=== PATIENT | female | born 1945 | race Caucasian/White ===

== ENCOUNTER 2021-06-25 15:23 | Inpatient (IN) | payer BC, MEDICARE ==
[2021-06-25] MEDS ORDERED: IPRATROPIUM 0.5 MG/2.5 ML NEBU INHALATION STA (16:21)
[2021-06-25] MEDS ORDERED: cefTRIAXone IN SWFI 1,000 MG/10 ML SYRINGE IVP STA (16:21)
[2021-06-25] MEDS ORDERED: methylPREDNISolone SOD SUCCI 125 MG/2 ML VIAL IV STA (16:21)
[2021-06-25] MEDS ORDERED: ALBUTEROL NEBULIZED 2.5 MG/3 ML INHALATION STA (16:21)
--- NOTE | 2021-06-25 16:46 | ED ---
General Adult HPI - General Chief complaint: Shortness of Breath Stated complaint: SOB,PCP sent pt in Time Seen by Provider: 06/25/21 16:10 Source: patient, RN notes reviewed, old records reviewed Mode of arrival: wheelchair Limitations: no limitations - History of Present Illness Initial comments: This is a 75-year-old female who presents emergency Department complaining that she's been coughing more short of breath over the last few days. Patient states a couple people in her household has had a cold recently. Patient states she is a smoker and has smoked for many years. Patient states the shortness of breath is getting progressively worse. Patient states she has just finished takes a really deep breath but that's the only time. Patient denies any palpitations per patient denies any fever chills. Patient states she is coughing quite a bit more and coughing up some sputum. Patient denies any abdominal pain patient denies nausea vomiting diarrhea. Patient denies headache patient denies numbness weakness. - Related Data Home Medications Medication Instructions Recorded Confirmed Aspirin [[place] Aspirin EC] 81 mg PO DAILY 06/25/21 06/25/21 Atenolol [Tenormin] 50 mg PO DAILY 06/25/21 06/25/21 Atorvastatin [Lipitor] 80 mg PO HS 06/25/21 06/25/21 Cholecalciferol [Vitamin D3 (25 25 mcg PO DAILY 06/25/21 06/25/21 Mcg = 1000 Iu)] Cyanocobalamin [Vitamin B-12] 500 mcg PO DAILY 06/25/21 06/25/21 Fluticasone Nasal [place] [Flonase 2 spray EA NOSTRIL DAILY PRN 06/25/21 06/25/21 Nasal [place]] Meclizine HCl 25 mg PO TID PRN 06/25/21 06/25/21 Omeprazole Magnesium [PriLOSEC OTC] 20 mg PO Q48H 06/25/21 06/25/21 hydroCHLOROthiazide [Hydrodiuril] 25 mg PO DAILY 06/25/21 06/25/21 Allergies Allergy/AdvReac Type Severity Reaction Status Date / Time No Known Allergies Allergy Verified 06/25/21 18:29 Review of Systems ROS Statement: Those systems with pertinent positive or pertinent negative responses have been documented in the HPI. ROS Other: All systems not noted in ROS Statement are negative. Past Medical History Past Medical History: Hyperlipidemia, Hypertension History of Any Multi-Drug Resistant Organisms: None Reported Past Surgical History: Section, Cholecystectomy Past Psychological History: No Psychological Hx Reported Smoking Status: Former smoker Past Alcohol Use History: None Reported Past Drug Use History: None Reported General Exam - General Exam Comments Initial Comments: GENERAL: Patient is well-developed and well-nourished. Patient is nontoxic and well- hydrated and is in mild distress. ENT: Neck is soft and supple. No significant lymphadenopathy is noted. Oropharynx i s clear. Moist mucous membranes. Neck has full range of motion without eliciting any pain. EYES: The sclera were anicteric and conjunctiva were pink and moist. Extraocular movements were intact and pupils were equal round and reactive to light. Eyelids were unremarkable. PULMONARY: Patient is wheezing diffusely CARDIOVASCULAR: There is a regular rate and rhythm without any murmurs gallops or rubs. Femoral pulses are equal bilaterally ABDOMEN: Soft and nontender with normal bowel sounds. SKIN: Skin is clear with no lesions or rashes and otherwise unremarkable. NEUROLOGIC: Patient is alert and oriented x3. Cranial nerves II through XII are grossly intact. Motor and sensory are also intact. Normal speech, volume and content. Symmetrical smile. MUSCULOSKELETAL: Normal extremities with adequate strength and full range of motion. LYMPHATICS: No significant lymphadenopathy is noted PSYCHIATRIC: Normal psychiatric evaluation. Limitations: no limitations Course Vital Signs 06/25/21 06/25/21 06/25/21 15:28 17:01 17:09 Temperature 98 F Pulse Rate 58 L 56 L 54 L Respiratory 22 20 Rate Blood Pressure 121/68 O2 Sat by Pulse 90 L Oximetry 06/25/21 17:24 Temperature Pulse Rate 62 Respiratory Rate Blood Pressure O2 Sat by Pulse Oximetry Medical Decision Making - Medical Decision Making EKG shows sinus bradycardia 52 bpm IN interval is 214 QRS is 85 Q-T intervals 47 QTC is 467. Patient's EKG shows no ST segment elevation or depression. Chest x-ray shows no acute abnormality. Patient received multiple breathing treatments and steroids in the emergency department. I went back in after they were done. The patient she continued to wheeze and was tachypneic. I spoke with Dr. Diego he agreed with the patient admitted the patient I continue to breathing treatments steroids and antibiotics on the floor. - Lab Data Result diagrams: 06/25/21 17:10 06/25/21 17:10 Lab Results 06/25/21 06/25/21 06/25/21 Range/Units 17:10 17:10 17:10 WBC 10.8 H (3.8-10.6) k/uL RBC 5.03 (3.80-5.40) m/uL Hgb 15.5 (11.4-16.0) gm/dL Hct 45.5 (34.0-46.0) % MCV 90.4 (80.0-100.0) fL MCH 30.8 (25.0-35.0) pg MCHC 34.1 (31.0-37.0) g/dL RDW 13.1 (11.5-15.5) % Plt Count 173 (150-450) k/uL MPV 9.9 Neutrophils % 76 % Lymphocytes % 16 % Monocytes % 6 % Eosinophils % 0 % Basophils % 0 % Neutrophils # 8.2 H (1.3-7.7) k/uL Lymphocytes # 1.7 (1.0-4.8) k/uL Monocytes # 0.6 (0-1.0) k/uL Eosinophils # 0.0 (0-0.7) k/uL Basophils # 0.0 (0-0.2) k/uL PT 11.0 (9.0-12.0) sec INR 1.0 (<1.2) APTT 24.3 (22.0-30.0) sec Sodium 132 L (137-145) mmol/L Potassium 3.2 L (3.5-5.1) mmol/L Chloride 94 L (98-107) mmol/L Carbon Dioxide 26 (22-30) mmol/L Anion Gap 12 mmol/L BUN 23 H (7-17) mg/dL Creatinine 0.82 (0.52-1.04) mg/dL Est GFR (CKD-EPI)AfAm 81 (>60 ml/min/1.73 sqM) Est GFR (CKD-EPI)NonAf 70 (>60 ml/min/1.73 sqM) Glucose 108 H (74-99) mg/dL Plasma Lactic Acid Arsh (0.7-2.0) mmol/L Calcium 8.8 (8.4-10.2) mg/dL Total Bilirubin 1.5 H (0.2-1.3) mg/dL AST 59 H (14-36) U/L ALT 35 H (4-34) U/L Alkaline Phosphatase 79 (38-126) U/L Troponin I (0.000-0.034) ng/mL Total Protein 6.9 (6.3-8.2) g/dL Albumin 3.9 (3.5-5.0) g/dL Influenza Type A (PCR) (Not Detectd) Influenza Type B (PCR) (Not Detectd) RSV (PCR) (Not Detectd) SARS-CoV-2 (PCR) (Not Detectd) 06/25/21 06/25/21 06/25/21 Range/Units 17:10 17:10 17:24 WBC (3.8-10.6) k/uL RBC (3.80-5.40) m/uL Hgb (11.4-16.0) gm/dL Hct (34.0-46.0) % MCV (80.0-100.0) fL MCH (25.0-35.0) pg MCHC (31.0-37.0) g/dL RDW (11.5-15.5) % Plt Count (150-450) k/uL MPV Neutrophils % % Lymphocytes % % Monocytes % % Eosinophils % % Basophils % % Neutrophils # (1.3-7.7) k/uL Lymphocytes # (1.0-4.8) k/uL Monocytes # (0-1.0) k/uL Eosinophils # (0-0.7) k/uL Basophils # (0-0.2) k/uL PT (9.0-12.0) sec INR (<1.2) APTT (22.0-30.0) sec Sodium (137-145) mmol/L Potassium (3.5-5.1) mmol/L Chloride (98-107) mmol/L Carbon Dioxide (22-30) mmol/L Anion Gap mmol/L BUN (7-17) mg/dL Creatinine (0.52-1.04) mg/dL Est GFR (CKD-EPI)AfAm (>60 ml/min/1.73 sqM) Est GFR (CKD-EPI)NonAf (>60 ml/min/1.73 sqM) Glucose (74-99) mg/dL Plasma Lactic Acid Arsh 2.2 H* (0.7-2.0) mmol/L Calcium (8.4-10.2) mg/dL Total Bilirubin (0.2-1.3) mg/dL AST (14-36) U/L ALT (4-34) U/L Alkaline Phosphatase (38-126) U/L Troponin I 0.029 (0.000-0.034) ng/mL Total Protein (6.3-8.2) g/dL Albumin (3.5-5.0) g/dL Influenza Type A (PCR) Not Detected (Not Detectd) Influenza Type B (PCR) Not Detected (Not Detectd) RSV (PCR) Not Detected (Not Detectd) SARS-CoV-2 (PCR) Not Detected (Not Detectd) Critical Care Time Critical Care Time: Yes Total Critical Care Time: 35 Disposition Clinical Impression: Acute exacerbation of chronic obstructive pulmonary disease Disposition: ADMITTED IP TO THIS HOSP Referrals: Tj Cerda MD [Primary Care Provider] - 1-2 days Time of Disposition: 19:32
[2021-06-25 17:47] LABS: Basophils % (A) 0 %; Eosinophils % (A) 0 %; HCT 45.5 % (34.0-46.0); HGB 15.5 gm/dL (11.4-16.0); Lymphocytes # (A) 1.7 k/uL (1.0-4.8); Lymphocytes % (A) 16 %; MCH 30.8 pg (25.0-35.0); MCHC 34.1 g/dL (31.0-37.0); MCV 90.4 fL (80.0-100.0); Mean Platelet Volume 9.9; Monocytes # (A) 0.6 k/uL (0-1.0); Monocytes % (A) 6 %; Neutrophils # (A) 8.2 k/uL (1.3-7.7); Neutrophils % (A) 76 %; Platelet Count 173 k/uL (150-450); RBC 5.03 m/uL (3.80-5.40); RDW 13.1 % (11.5-15.5); WBC 10.8 k/uL (3.8-10.6)
[2021-06-25 17:53] LABS: Albumin 3.9 g/dL (3.5-5.0); Calcium 8.8 mg/dL (8.4-10.2); Potassium 3.2 mmol/L (3.5-5.1); Total Bilirubin 1.5 mg/dL (0.2-1.3); Total Protein 6.9 g/dL (6.3-8.2)
[2021-06-25 17:54] LABS: Partial Thromboplastin Time 24.3 sec (22.0-30.0)
--- NOTE | 2021-06-25 18:55 | XR ---
EXAMINATION: XR chest 2V DATE AND TIME: 06/25/2021 5:38 PM CLINICAL INDICATION: PHH; difficulty breathing TECHNIQUE: Departmental protocol COMPARISON: None FINDINGS: The lungs are clear. The pleural spaces are negative. The cardiac silhouette is not enlarged. The remainder of the mediastinal silhouette is unremarkable. The skeletal structures and soft tissues are negative for acute findings. IMPRESSION: No acute radiographic process.
[2021-06-25] MEDS ORDERED: IPRATROPIUM-ALBUTEROL 3 ML NEB INHALATION PRN (19:33)
[2021-06-25] MEDS ORDERED: FLUTICASONE 50MCG/SPRAY NASAL 16GM EA NOSTRIL PRN (21:38)
--- NOTE | 2021-06-25 22:15 | P.HPIM ---
History of Present Illness H&P Date: 06/25/21 HISTORY OF PRESENT ILLNESS 75-year-old female one of Dr. Cerda's patient with past medical history of chronic smoking, COPD, hypertension and hyperlipidemia who was diagnosed with mild COPD in the past has not been hospitalized with any complication related COPD or Covid last few years. Patient presented to the emergency department at [facility] on 06/25/2021 with significant shortness of breath cough wheezes with severe tightness and cough predictive dark phlegm. Patient apparently had failed to keep her symptoms under control on outpatient inhaler. Her emergency workup initially with white blood cell was 10,800 mildly hypokalemia with mildly elevated lactic acid at 2.2 with slightly abnormal liver function test with Covid 19 negative, with negative influenza A and B. Patient was giving multiple dose of nebulizer management in the emergency room with failure to bring her pulse ox above 90 percentile initially was in the mid 80 with 2-3 L of O2 a pulse ox rice to be above 90 percentile. Patient was giving Solu-Medrol, Rocephin and started on nebulizer treatment [id number] will be admitted to the hospital for acute respiratory failure. REVIEW OF SYSTEMS Constitutional: No fever, no chills, no night sweats. No weight change. No weakness, fatigue or lethargy. No daytime sleepiness. EENT: No headache. No blurred vision or double vision, no loss of vision. No loss of Hearing, no ringing in the ears, no dizziness. No nasal drainage or congestion. No epistaxis. No sore throat. Lungs: significant shortness of breath, cough wheezes with significant respiratory failure this point. Sputum production and mild tightness with deep inspiration. Cardiovascular: No chest pain, no lower extremity edema. No palpitations. No paroxysmal nocturnal dyspnea. No orthopnea. No lightheadedness or dizziness. No syncopal episodes. Abdominal: No abdominal pain. No nausea, vomiting. No diarrhea. No constipat ion. No bloody or tarry stools.. No loss of appetite. Genitourinary: No dysuria, increased frequency, urgency. No urinary retention. Musculoskeletal: No myalgias. No muscle weakness, no gait dysfunction, no frequent falls. No back pain. No neck pain. Integumentary: No wounds, no lesions. No rash or pruritus. No unusual bruising. No change in hair or nails. Neurologic: No aphasia. No facial droop. No change in mentation. No head injury. No headache. No paralysis. No paresthesia. Psychiatric: No depression. No anxiety. No mood swings. Endocrine: No abnormal blood sugars. No weight change. No excessive sweating or thirst. No cold intolerance. SOCIAL HISTORY she smoked 1 pack a day for over 48 years, no Reed abuse, no marijuana use, patient uses nebulizer sometime in inhaler does not walk with a walker or cane she is a live alone. FAMILY HISTORY her mother dying in her 70s from cancer of unknown type, father in his 70s from MS, patient had 2 sisters one had ALS and one had a stroke. Patient has 3 children are all living and well. PHYSICAL EXAMINATION Gen: This is well-developed sitting up in bed having mild tachypnea in mild respiratory distress. HEENT: Head is atraumatic, normocephalic. Pupils equal, round. Sclerae is anicteric. NECK: Supple. No JVD. No lymphadenopathy. No thyromegaly. LUNGS: decreased expansion with inspiration positive for rhonchi especially in t he bases positive mild inspiratory expiratory wheezes. HEART: Regular rate and rhythm. No murmur. has mild tachycardia. ABDOMEN: Soft. Bowel sounds are present. No masses. No tenderness. EXTREMITIES: No pedal edema. No calf tenderness. NEUROLOGICAL: Patient is awake, alert and oriented x3. Cranial nerves 2 through 12 are grossly intact. ASSESSMENT AND PLAN 1.severe dyspnea and acute respiratory failure: Secondary to COPD exacerbation,and bronchitis. Patient will be admitted to the hospital continue O2, if needed BiPAP use, will consult pulmonary, was start patient on IV steroids along with DuoNeb and Pulmicort. 2 COPD exacerbation: With chronic history of smoking for over 40 years, she'll be seen pulmonary, continue aggressive management and treatment for COPD at this point. 3 acute severe bronchitis: Most likely atypical with patient's current symptoms was started on Rocephin initially and switched to Omnicef continue medication. 4 mildly elevated lactic acid: With no sign of sepsis with hydration lactic acid came down to normal keep watching for any sign of sepsis at this point. 5 abnormal liver function tests: With no sign of hepatitis repeat CMP tomorrow and if needed ultrasound of the liver will be done. 6 hypokalemia: Most likely secondary to medication the patient is on hydrocodone chlorothiazide potassium supplements will be done repeat potassium magnesium level tomorrow. 7 chronic history of smoking: Smoking cessation was addressed patient be started nicotine patch at this point. 8 hypertension: Continue patient on atenolol 50 mg a day along with Hydrea diarrheal. 9 hyperlipidemia: Continue patient on atorvastatin 80 mg daily. 10 severe GERD/GI prophylaxis: Patient has been on omeprazole 20 mg every 48 hours and switch it to every day at this point. 11 DVT prophylaxis: Patient will be on Lovenox 40 mg daily. 11. COVID-19 testing.was negative patient was admitted to the hospital during pandemic time. Patient will be admitted to the hospital for a minimum of 2 night stay. Past Medical History Past Medical History: Hyperlipidemia, Hypertension History of Any Multi-Drug Resistant Organisms: None Reported Past Surgical History: Section, Cholecystectomy Past Psychological History: No Psychological Hx Reported Smoking Status: Former smoker Past Alcohol Use History: None Reported Past Drug Use History: None Reported Medications and Allergies Home Medications Medication Instructions Recorded Confirmed Type Aspirin [[place] Aspirin EC] 81 mg PO DAILY 06/25/21 06/25/21 History Atenolol [Tenormin] 50 mg PO DAILY 06/25/21 06/25/21 History Atorvastatin [Lipitor] 80 mg PO HS 06/25/21 06/25/21 History Cholecalciferol [Vitamin D3 (25 25 mcg PO DAILY 06/25/21 06/25/21 History Mcg = 1000 Iu)] Cyanocobalamin [Vitamin B-12] 500 mcg PO DAILY 06/25/21 06/25/21 History Fluticasone Nasal [place] [Flonase 2 spray EA NOSTRIL DAILY PRN 06/25/21 06/25/21 History Nasal [place]] Meclizine HCl 25 mg PO TID PRN 06/25/21 06/25/21 History Omeprazole Magnesium [PriLOSEC OTC] 20 mg PO Q48H 06/25/21 06/25/21 History hydroCHLOROthiazide [Hydrodiuril] 25 mg PO DAILY 06/25/21 06/25/21 History Allergies Allergy/AdvReac Type Severity Reaction Status Date / Time No Known Allergies Allergy Verified 06/25/21 18:29 Physical Exam Vitals: Vital Signs Temp Pulse Resp BP Pulse Ox 06/25/21 17:24 62 04/07/22 17:09 54 L 20 06/25/21 17:01 56 L 06/25/21 15:28 98 F 58 L 22 121/68 90 L Intake and Output 06/25/21 06/25/21 06/25/21 06:59 14:59 22:59 Other: Weight 65.317 kg Results CBC & Chem 7: 06/25/21 17:10 06/25/21 17:10 Labs: Abnormal Lab Results - Last 24 Hours (Table) 06/25/21 06/25/21 06/25/21 Range/Units 17:10 17:10 17:10 WBC 10.8 H (3.8-10.6) k/uL Neutrophils # 8.2 H (1.3-7.7) k/uL Sodium 132 L (137-145) mmol/L Potassium 3.2 L (3.5-5.1) mmol/L Chloride 94 L (98-107) mmol/L BUN 23 H (7-17) mg/dL Glucose 108 H (74-99) mg/dL Plasma Lactic Acid Arsh 2.2 H* (0.7-2.0) mmol/L Total Bilirubin 1.5 H (0.2-1.3) mg/dL AST 59 H (14-36) U/L ALT 35 H (4-34) U/L
[2021-06-25] MEDS: POTASSIUM CHLORIDE ER 20 MEQ TAB.ER PO SCH (22:53)
[2021-06-26] MEDS: methylPREDNISolone SOD SUCCI 125 MG/2 ML VIAL IV SCH ×5 (00:36→23:22)
[2021-06-26] MEDS: POTASSIUM CHLORIDE ER 20 MEQ TAB.ER PO SCH (00:36)
[2021-06-26 08:04] LABS: Glucose,Whole Blood 195 mg/dL (75-99)
[2021-06-26] MEDS: ENOXAPARIN 40 MG/0.4 ML SYRINGE SQ SCH (10:03)
[2021-06-26] MEDS: hydroCHLOROthiazide 25 MG TAB PO SCH (10:03)
[2021-06-26] MEDS: CEFDINIR 300 MG CAP PO SCH ×2 (10:03→19:43)
[2021-06-26] MEDS: CYANOCOBALAMIN 500 MCG TAB PO SCH (10:03)
[2021-06-26] MEDS: atenoloL 50 MG TAB PO SCH (10:03)
[2021-06-26] MEDS: NICOTINE 14MG/24HR PATCH TRANSDERM SCH (10:03)
[2021-06-26] MEDS: ASPIRIN 81 MG PO SCH (10:03)
[2021-06-26] MEDS: CHOLECALCIFEROL 25 MCG (1000 IU) TABLET PO SCH (10:03)
[2021-06-26 10:31] LABS: HGB 13.5 g/dL (12.0-15.0); MCH 29.7 pg (27.0-32.0); MCHC 33.8 g/dL (32.0-37.0); MCV 87.9 fL (80.0-97.0); Mean Platelet Volume 12.1 fL (9.5-12.2); NRBC Per 100 WBC 0 /100 WBCS (0.0-0.0); Platelet Count 155 X 10*3/uL (140-440); RBC 4.55 X 10*6/uL (4.10-5.20); RDW 12.7 % (11.5-14.5); WBC 6.15 X 10*3/uL (4.50-10.00)
[2021-06-26 10:39] LABS: Albumin 3.6 g/dL (3.8-4.9); Albumin/Globulin Ratio 1.57 (1.60-3.17); Anion Gap 16.1 mmol/L (10.00-18.00); BUN/Creat Ratio 23.88 Ratio (12.00-20.00); Blood Urea Nitrogen 19.1 mg/dL (9.0-27.0); Calcium 8.8 mg/dL (8.7-10.3); Carbon Dioxide 22.9 mmol/L (20.0-27.5); Globulin 2.3 g/dL (1.6-3.3); Non-African American GFR(CKD) 71.6 (60.0-200.0); Potassium 3.7 mmol/L (3.5-5.5); Total Bilirubin 0.7 mg/dL (0.30-1.20); Total Protein 5.9 g/dL (6.2-8.2)
--- NOTE | 2021-06-26 10:57 | P.PN ---
Subjective Progress Note Date: 06/26/21 HISTORY OF PRESENT ILLNESS 75-year-old female one of Dr. Cerda's patient with past medical history of chronic smoking, COPD, hypertension and hyperlipidemia who was diagnosed with mild COPD in the past has not been hospitalized with any complication related COPD or Covid last few years. Patient presented to the emergency department at [facility] on 06/25/2021 with significant shortness of breath cough wheezes with severe tightness and cough predictive dark phlegm. Patient apparently had failed to keep her symptoms under control on outpatient inhaler. Her emergency workup initially with white blood cell was 10,800 mildly hypokalemia with mildly elevated lactic acid at 2.2 with slightly abnormal liver function test with Covid 19 negative, with negative influenza A and B. Patient was giving multiple dose of nebulizer management in the emergency room with failure to bring her pulse ox above 90 percentile initially was in the mid 80 with 2-3 L of O2 a pulse ox rice to be above 90 percentile. Patient was giving Solu-Medrol, Rocephin and started on nebulizer treatment [id number] will be admitted to the hospital for acute respiratory failure. 06/26: Patient states that her breathing is improved today. Lungs continue to be tight with noted cough with worse breath sounds on the right side. We will repeat chest x-ray for tomorrow. Patient has been afebrile, heart rate 65, blood pressure 152/63, pulse ox 96% on 3 L nasal cannula. Discussed smoking cessation again with the patient and she is agreeable to stop now and has nicotine patich in place. She does not have O2/nebulizer at home which she may require at discharge Anticipate probable discharge home by Tuesday. REVIEW OF SYSTEMS Constitutional: No fever, no chills, no night sweats. No weight change. No weakness, fatigue or lethargy. No daytime sleepiness. EENT: No headache. No blurred vision or double vision, no loss of vision. No loss of Hearing, no ringing in the ears, no dizziness. No nasal drainage or congestion. No epistaxis. No sore throat. Lungs: significant shortness of breath, reports cough wheezes with significant respiratory failure this point. Sputum production and mild tightness with deep inspiration. Cardiovascular: No chest pain, no lower extremity edema. No palpitations. No paroxysmal nocturnal dyspnea. No orthopnea. No lightheadedness or dizziness. No syncopal episodes. Abdominal: No abdominal pain. No nausea, vomiting. No diarrhea. No constipation. No bloody or tarry stools.. No loss of appetite. Genitourinary: No dysuria, increased frequency, urgency. No urinary retention. Musculoskeletal: No myalgias. No muscle weakness, no gait dysfunction, no frequent falls. No back pain. No neck pain. Integumentary: No wounds, no lesions. No rash or pruritus. No unusual bruising. No change in hair or nails. Neurologic: No aphasia. No facial droop. No change in mentation. No head injury. No headache. No paralysis. No paresthesia. Psychiatric: No depression. No anxiety. No mood swings. Endocrine: No abnormal blood sugars. No weight change. No excessive sweating or thirst. No cold intolerance. PHYSICAL EXAMINATION Gen: This is well-developed sitting up in bed having mild tachypnea in mild respiratory distress. HEENT: Head is atraumatic, normocephalic. Pupils equal, round. Sclerae is anicteric. NECK: Supple. No JVD. No lymphadenopathy. No thyromegaly. LUNGS: decreased expansion with inspiration positive for rhonchi especially in the bases positive mild inspiratory expiratory wheezes. HEART: Regular rate and rhythm. No murmur. has mild tachycardia. ABDOMEN: Soft. Bowel sounds are present. No masses. No tenderness. EXTREMITIES: No pedal edema. No calf tenderness. NEUROLOGICAL: Patient is awake, alert and oriented x3. Cranial nerves 2 through 12 are grossly intact. ASSESSMENT AND PLAN 1.severe dyspnea and acute respiratory failure: Secondary to COPD exacerbation,and bronchitis. Patient will be admitted to the hospital continue O2, if needed BiPAP use, will consult pulmonary, was start patient on IV Solu- Medrol along with DuoNeb and Pulmicort. 2 COPD exacerbation: With chronic history of smoking for over 40 years, she'll be seen pulmonary, continue aggressive management and treatment for COPD at this point. 3 acute severe bronchitis: Most likely atypical with patient's current symptoms was started on Rocephin initially and switched to Omnicef continue medication. 4 mildly elevated lactic acid: With no sign of sepsis with hydration lactic acid came down to normal keep watching for any sign of sepsis at this point. 5 abnormal liver function tests: With no sign of hepatitis repeat CMP tomorrow and if needed ultrasound of the liver will be done. 6 hypokalemia: Most likely secondary to medication the patient is on hydrocodone chlorothiazide potassium supplements will be done repeat potassium magnesium level tomorrow. 7 chronic history of smoking: Smoking cessation was addressed patient be started nicotine patch at this point. 8 hypertension: Continue patient on atenolol 50 mg a day along with hydrochlorothiazide. 9 hyperlipidemia: Continue patient on atorvastatin 80 mg daily. 10 severe GERD/GI prophylaxis: Patient has been on omeprazole 20 mg every 48 hours and switch it to every day at this point. 11 DVT prophylaxis: Patient will be on Lovenox 40 mg daily. 11. COVID-19 testing.was negative patient was admitted to the hospital during pandemic time. DISCHARGE PLAN Home most likely on Tuesday Impression and plan of care have been directed as dictated by the signing physician. Mary Blum nurse practitioner acting as scribe for signing physician. Objective - Vital Signs Vital signs: Vital Signs Temp 97.9 F 06/26/21 07:30 Pulse 65 06/26/21 07:30 Resp 18 06/26/21 07:30 BP 152/63 06/26/21 07:30 Pulse Ox 96 06/26/21 07:30 Intake & Output 06/25/21 06/26/21 06/26/21 18:59 06:59 18:59 Intake Total 200 Balance 200 Weight 65.317 kg 65.317 kg Intake: Oral 200 Other: # Voids 1 - Labs CBC & Chem 7: 06/26/21 06:15 06/26/21 06:15 Labs: Abnormal Lab Results - Last 24 Hours (Table) 06/25/21 06/25/21 06/25/21 Range/Units 17:10 17:10 17:10 WBC 10.8 H (3.8-10.6) k/uL Neutrophils # 8.2 H (1.3-7.7) k/uL Sodium 132 L (137-145) mmol/L Potassium 3.2 L (3.5-5.1) mmol/L Chloride 94 L (98-107) mmol/L BUN 23 H (7-17) mg/dL Glucose 108 H (74-99) mg/dL POC Glucose (mg/dL) (75-99) mg/dL Plasma Lactic Acid Arsh 2.2 H* (0.7-2.0) mmol/L Total Bilirubin 1.5 H (0.2-1.3) mg/dL AST 59 H (14-36) U/L ALT 35 H (4-34) U/L 06/26/21 Range/Units 08:02 WBC (3.8-10.6) k/uL Neutrophils # (1.3-7.7) k/uL Sodium (137-145) mmol/L Potassium (3.5-5.1) mmol/L Chloride (98-107) mmol/L BUN (7-17) mg/dL Glucose (74-99) mg/dL POC Glucose (mg/dL) 195 H (75-99) mg/dL Plasma Lactic Acid Arsh (0.7-2.0) mmol/L Total Bilirubin (0.2-1.3) mg/dL AST (14-36) U/L ALT (4-34) U/L
[2021-06-26 11:14] LABS: Glucose,Whole Blood 257 mg/dL (75-99)
[2021-06-26] MEDS: INSULIN ASPART (NovoLOG) 100 UNIT/ML VIAL SQ SCH ×3 (12:41→20:51)
--- NOTE | 2021-06-26 14:23 | P.CNPUL ---
History of Present Illness Consult date: 06/26/21 Reason for consult: dyspnea, COPD History of present illness: 75-year-old female patient, known history of COPD, no history of chronic smoking, does not utilize any form of respiratory medications or inhalers of bronchodilators or oxygen at home. The patient is fully vaccinated for COVID 193. The patient came into the hospital for worsening shortness of breath cough chest congestion and wheezing. She initially came into the emergency dep artment on 06/25/2021 with the above-mentioned symptoms and the patient was producing also some sputum. Further investigation revealed that the patient was negative for COVID 19. Influenza screen was also negative. The patient was started on [id number] breathing treatments. She was hypoxic and she was placed on 2 L of O2 by nasal cannula which both upper pulse ox above 90%. She was admitted for an acute COPD exacerbation. Chest x-ray shows COPD and some limited evaluation of the left hemidiaphragm. No other acute abnormality is noted. No altered mentation. No change in mental status. She is currently on Omnicef. She is on bronchodilators to she is a 90 Solu Medrol system milligrams every 6 hours and she's feeling much better. She was also provided nicotine patch. Review of Systems Constitutional: No fever, no chills, no night sweats. No weight change. No weakness, fatigue or lethargy. No daytime sleepiness. No reported fever or chills. No weight loss. No other constitutional symptoms for now. EENT: No headache. No blurred vision or double vision, no loss of vision. No loss of Hearing, no ringing in the ears, no dizziness. No nasal drainage or congestion. No epistaxis. No sore throat. Lungs: significant shortness of breath, cough wheezes with significant respiratory failure this point. Sputum production and mild tightness with deep inspiration. Cardiovascular: No chest pain, no lower extremity edema. No palpitations. No paroxysmal nocturnal dyspnea. No orthopnea. No lightheadedness or dizziness. No syncopal episodes. Abdominal: No abdominal pain. No nausea, vomiting. No diarrhea. No c onstipation. No bloody or tarry stools.. No loss of appetite. Genitourinary: No dysuria, increased frequency, urgency. No urinary retention. Musculoskeletal: No myalgias. No muscle weakness, no gait dysfunction, no frequent falls. No back pain. No neck pain. Integumentary: No wounds, no lesions. No rash or pruritus. No unusual bruising. No change in hair or nails. Neurologic: No aphasia. No facial droop. No change in mentation. No head injury. No headache. No paralysis. No paresthesia. Psychiatric: No depression. No anxiety. No mood swings. Endocrine: No abnormal blood sugars. No weight change. No excessive sweating or thirst. No cold intolerance. Past Medical History Past Medical History: COPD, GERD/Reflux, Hyperlipidemia, Hypertension History of Any Multi-Drug Resistant Organisms: None Reported Past Surgical History: Section, Cholecystectomy Past Psychological History: No Psychological Hx Reported Smoking Status: Former smoker Past Alcohol Use History: None Reported Past Drug Use History: None Reported Medications and Allergies Home Medications Medication Instructions Recorded Confirmed Type Aspirin [Po[place]ett Aspirin EC] 81 mg PO DAILY 06/25/21 06/25/21 History Atenolol [Tenormin] 50 mg PO DAILY 06/25/21 06/25/21 History Atorvastatin [Lipitor] 80 mg PO HS 06/25/21 06/25/21 History Cholecalciferol [Vitamin D3 (25 25 mcg PO DAILY 06/25/21 06/25/21 History Mcg = 1000 Iu)] Cyanocobalamin [Vitamin B-12] 500 mcg PO DAILY 06/25/21 06/25/21 History Fluticasone Nasal Wilber [Flonase 2 spray EA NOSTRIL DAILY PRN 06/25/21 06/25/21 History Nasal Wilber] Meclizine HCl 25 mg PO TID PRN 06/25/21 06/25/21 History Omeprazole Magnesium [PriLOSEC OTC] 20 mg PO Q48H 06/25/21 06/25/21 History hydroCHLOROthiazide [Hydrodiuril] 25 mg PO DAILY 06/25/21 06/25/21 History Allergies Allergy/AdvReac Type Severity Reaction Status Date / Time No Known Allergies Allergy Verified 06/25/21 18:29 Physical Exam Vitals: Vital Signs Temp Pulse Pulse Resp BP BP BP 06/26/21 12:04 98.4 F 64 18 136/67 06/26/21 10:48 06/26/21 08:25 18 06/26/21 07:30 97.9 F 65 18 152/63 06/26/21 05:35 98 F 49 L 20 138/67 06/25/21 21:00 20 06/25/21 20:40 97.4 F L 53 L 20 159/71 06/25/21 17:24 62 06/25/21 17:09 54 L 20 06/25/21 17:01 56 L 06/25/21 15:28 98 F 58 L 22 121/68 Pulse Ox Pulse Ox Pulse Ox Pulse Ox Pulse Ox 06/26/21 12:04 94 L 06/26/21 10:48 96 94 L 90 L 87 L 06/26/21 08:25 06/26/21 07:30 96 06/26/21 05:35 94 L 06/25/21 21:00 06/25/21 20:40 91 L 06/25/21 17:24 06/25/21 17:09 06/25/21 17:01 06/25/21 15:28 90 L Intake and Output 06/25/21 06/26/21 06/26/21 22:59 06:59 14:59 Intake Total 100 100 Balance 100 100 Intake: Oral 100 100 Other: Voiding Method Toilet # Voids 1 Weight 65.317 kg Gen. appearance the patient is calm and comfortable is on 2 L of oxygen by nasal cannula. She is not using excessive muscle breathing. Head exam was generally normal. There was no scleral icterus or corneal arcus. Mucous membranes were moist. Neck was supple and without jugular venous distension, thyromegaly, or carotid bruits. Carotids were easily palpable bilaterally. There was no adenopathy. Lungs sounds are diminished and the patient has diffuse expiratory wheezes throughout the lung his bilaterally Cardiac exam revealed the PMI to be normally situated and sized. The rhythm was regular and no extrasystoles were noted during several minutes of auscultation. The first and second heart sounds were normal and physiologic splitting of the second heart sound was noted. There were no murmurs, rubs, clicks, or gallops. Abdominal exam revealed normal bowel sounds. The abdomen was soft, non-tender, and without masses, organomegaly, or appreciable enlargement of the abdominal aorta. Examination of the extremities revealed easily palpable radial, femoral and pedal pulses. There was no cyanosis, clubbing or edema. Examination of the skin revealed no evidence of significant rashes, suspicious appearing nevi or other concerning lesions. Neurologically, the patient is awake and alert and the patient does not have any focal neurological deficit. Cranial nerves are essentially intact. Results - Laboratory Findings CBC and BMP: 06/26/21 06:15 06/26/21 06:15 PT/INR, D-dimer PT 11.0 sec (9.0-12.0) 06/25/21 17:10 INR 1.0 (<1.2) 06/25/21 17:10 D-Dimer 0.24 mg/L FEU (<0.60) 06/25/21 22:32 Abnormal lab findings: Abnormal Labs 06/25/21 06/25/21 06/25/21 17:10 17:10 17:10 WBC 10.8 H Neutrophils # 8.2 H Sodium 132 L Potassium 3.2 L Chloride 94 L BUN 23 H BUN/Creatinine Ratio Glucose 108 H POC Glucose (mg/dL) Plasma Lactic Acid Arsh 2.2 H* Total Bilirubin 1.5 H AST 59 H ALT 35 H Total Protein Albumin Albumin/Globulin Ratio 06/26/21 06/26/21 06/26/21 06:15 08:02 11:11 WBC Neutrophils # Sodium 134 L Potassium Chloride 95 L BUN BUN/Creatinine Ratio 23.88 H Glucose 179 H POC Glucose (mg/dL) 195 H 257 H Plasma Lactic Acid Arsh Total Bilirubin AST 43 H ALT Total Protein 5.9 L Albumin 3.6 L Albumin/Globulin Ratio 1.57 L - Diagnostic Findings Chest x-ray: image reviewed Assessment and Plan Plan: 1 acute COPD exacerbation, with a component of an underlying tracheal bronchitis. No clear indication for pneumonia at this point in time. The patient presents to hospital because of acute hypoxic respiratory failure, and symptoms typical of COPD exacerbation. On the chest x-ray, left diaphragm is slightly elevated. COVID 19 and influenza screen was negative. 2 acute hypoxic respiratory failure secondary to above 3 chronic smoker 4 shortness of breath secondary to above 5 hypertension 6 hyperlipidemia 7 mild elevation of left hemidiaphragm is noted on today's chest x-ray Plan Agree on the current management Continue bronchodilators, steroids and antibiotics Optimize respiratory status Nicotine patch Smoking cessation counseling Outpatient PFT Consider a maintenance respiratory medication on outpatient basis optimize her symptoms of shortness of breath and COPD Resume all medications We'll continue to follow
[2021-06-26 17:29] LABS: Glucose,Whole Blood 171 mg/dL (75-99)
[2021-06-26] MEDS: ATORVASTATIN 80 MG TAB PO SCH (19:43)
[2021-06-26] MEDS: BUDESONIDE 1 MG/2 ML NEBU INHALATION SCH (20:24)
[2021-06-26 20:31] LABS: Glucose,Whole Blood 190 mg/dL (75-99)
[2021-06-27] MEDS: methylPREDNISolone SOD SUCCI 125 MG/2 ML VIAL IV SCH ×4 (05:41→23:40)
--- NOTE | 2021-06-27 06:57 | XR ---
EXAMINATION TYPE: XR chest 2V DATE OF EXAM: 06/27/2021 6:27 AM COMPARISON:Chest radiograph from two days prior. TECHNIQUE: XR chest 2V Frontal view of the chest. CLINICAL INDICATION:Female, 75 years old with history of pneumonia ; FINDINGS: Lungs/Pleura: There is no evidence of pleural effusion, focal consolidation, or pneumothorax. Streak y atelectasis within left lower lung. Pulmonary vascularity: Unremarkable. Heart/mediastinum: Cardiomediastinal silhouette is prominent in size. Musculoskeletal: No acute osseous pathology. Right shoulder arthroplasty changes. IMPRESSION: No acute cardiopulmonary disease/process.
[2021-06-27 07:18] LABS: Glucose,Whole Blood 192 mg/dL (75-99)
[2021-06-27] MEDS: INSULIN ASPART (NovoLOG) 100 UNIT/ML VIAL SQ SCH ×4 (08:42→21:05)
[2021-06-27] MEDS: CYANOCOBALAMIN 500 MCG TAB PO SCH (08:43)
[2021-06-27] MEDS: ASPIRIN 81 MG PO SCH (08:44)
[2021-06-27] MEDS: hydroCHLOROthiazide 25 MG TAB PO SCH (08:44)
[2021-06-27] MEDS: PANTOPRAZOLE 40 MG TABLET PO SCH (08:44)
[2021-06-27] MEDS: CHOLECALCIFEROL 25 MCG (1000 IU) TABLET PO SCH (08:44)
[2021-06-27] MEDS: CEFDINIR 300 MG CAP PO SCH ×2 (08:44→20:14)
[2021-06-27] MEDS: atenoloL 50 MG TAB PO SCH (08:44)
[2021-06-27] MEDS: ENOXAPARIN 40 MG/0.4 ML SYRINGE SQ SCH (08:45)
[2021-06-27] MEDS: NICOTINE 14MG/24HR PATCH TRANSDERM SCH (08:45)
[2021-06-27] MEDS: BUDESONIDE 1 MG/2 ML NEBU INHALATION SCH ×2 (09:07→19:53)
[2021-06-27] MEDS: guaiFENesin 600 MG TABLET.ER PO SCH ×2 (10:19→20:14)
--- NOTE | 2021-06-27 11:41 | P.PN ---
Subjective Progress Note Date: 06/27/21 HISTORY OF PRESENT ILLNESS 75-year-old female one of Dr. Cerda's patient with past medical history of chronic smoking, COPD, hypertension and hyperlipidemia who was diagnosed with mild COPD in the past has not been hospitalized with any complication related COPD or Covid last few years. Patient presented to the emergency department at [facility] on 06/25/2021 with significant shortness of breath cough wheezes with severe tightness and cough predictive dark phlegm. Patient apparently had failed to keep her symptoms under control on outpatient inhaler. Her emergency workup initially with white blood cell was 10,800 mildly hypokalemia with mildly elevated lactic acid at 2.2 with slightly abnormal liver function test with Covid 19 negative, with negative influenza A and B. Patient was giving multiple dose of nebulizer management in the emergency room with failure to bring her pulse ox above 90 percentile initially was in the mid 80 with 2-3 L of O2 a pulse ox rice to be above 90 percentile. Patient was giving Solu-Medrol, Rocephin and started on nebulizer treatment [id number] will be admitted to the hospital for acute respiratory failure. 06/26: Patient states that her breathing is improved today. Lungs continue to be tight with noted cough with worse breath sounds on the right side. We will repeat chest x-ray for tomorrow. Patient has been afebrile, heart rate 65, blood pressure 152/63, pulse ox 96% on 3 L nasal cannula. Discussed smoking cessation again with the patient and she is agreeable to stop now and has nicotine patich in place. She does not have O2/nebulizer at home which she may require at discharge Anticipate probable discharge home by Tuesday. 06/27: patient is found sitting up in bed. She is complaining of consistent cough in the morning. She is unable to bring anything up from the cough. Patient states that she has not kept up during the night with the cough that is only happening in the morning and as the day progresses it would be significantly lessened. Patient is experiencing some inspiratory wheezes. No other complaints or concerns. patient remains afebrile, heart rate 67, respirations 20, blood pressure 130/68, 95% on 2 L. REVIEW OF SYSTEMS Constitutional: No fever, no chills, no night sweats. No weight change. No weakness, fatigue or lethargy. No daytime sleepiness. EENT: No headache. No blurred vision or double vision, no loss of vision. No loss of Hearing, no ringing in the ears, no dizziness. No nasal drainage or congestion. No epistaxis. No sore throat. Lungs: significant shortness of breath, reports cough wheezes with significant respiratory failure this point. Sputum production and mild tightness with deep inspiration. Cardiovascular: No chest pain, no lower extremity edema. No palpitations. No paroxysmal nocturnal dyspnea. No orthopnea. No lightheadedness or dizziness. No syncopal episodes. Abdominal: No abdominal pain. No nausea, vomiting. No diarrhea. No constipation. No bloody or tarry stools.. No loss of appetite. Genitourinary: No dysuria, increased frequency, urgency. No urinary retention. Musculoskeletal: No myalgias. No muscle weakness, no gait dysfunction, no frequent falls. No back pain. No neck pain. Integumentary: No wounds, no lesions. No rash or pruritus. No unusual bruising. No change in hair or nails. Neurologic: No aphasia. No facial droop. No change in mentation. No head injury. No headache. No paralysis. No paresthesia. Psychiatric: No depression. No anxiety. No mood swings. Endocrine: No abnormal blood sugars. No weight change. No excessive sweating or thirst. No cold intolerance. PHYSICAL EXAMINATION Gen: This is well-developed sitting up in bed having mild tachypnea in mild respiratory distress. HEENT: Head is atraumatic, normocephalic. Pupils equal, round. Sclerae is anicteric. NECK: Supple. No JVD. No lymphadenopathy. No thyromegaly. LUNGS: decreased expansion with inspiration positive for rhonchi especially in the bases positive mild inspiratory expiratory wheezes. HEART: Regular rate and rhythm. No murmur. has mild tachycardia. ABDOMEN: Soft. Bowel sounds are present. No masses. No tenderness. EXTREMITIES: No pedal edema. No calf tenderness. NEUROLOGICAL: Patient is awake, alert and oriented x3. Cranial nerves 2 through 12 are grossly intact. ASSESSMENT AND PLAN 1.severe dyspnea and acute respiratory failure: Secondary to COPD exacerbation,and bronchitis. Patient will be admitted to the hospital continue O2, if needed BiPAP use, will consult pulmonary, was start patient on IV Solu- Medrol along with DuoNeb and Pulmicort. 2 COPD exacerbation: With chronic history of smoking for over 40 years, she'll be seen pulmonary, continue aggressive management and treatment for COPD at this point. 3 acute severe bronchitis: Most likely atypical with patient's current symptoms was started on Rocephin initially and switched to Omnicef continue medication. 4 mildly elevated lactic acid: With no sign of sepsis with hydration lactic acid came down to normal keep watching for any sign of sepsis at this point. 5. Chronic hypoxic respiratory failure requiring home O2 therapy in order to manage her COPD and perform ADLs. patient requires nebulizer with DuoNeb treatment 4 times a day to manage diagnosis of COPD exacerbation. Flonase 2 puffs each nostril at night, start Mucinex. 6 abnormal liver function tests: With no sign of hepatitis repeat CMP tomorrow and if needed ultrasound of the liver will be done. 7 hypokalemia: Most likely secondary to medication the patient is on hydrocodone chlorothiazide potassium supplements will be done repeat potassium magnesium level tomorrow. 8 chronic history of smoking: Smoking cessation was addressed patient be started nicotine patch at this point. 9 hypertension: Continue patient on atenolol 50 mg a day along with hydrochlor othiazide. 10 hyperlipidemia: Continue patient on atorvastatin 80 mg daily. 11 severe GERD/GI prophylaxis: Patient has been on omeprazole 20 mg every 48 hours and switch it to every day at this point. 12 DVT prophylaxis: Patient will be on Lovenox 40 mg daily. 13. COVID-19 testing.was negative patient was admitted to the hospital during pandemic time. DISCHARGE PLAN Home most likely on Tuesday Impression and plan of care have been directed as dictated by the signing physician. Lisha Turcios nurse practitioner acting as scribe for signing physician. Objective - Vital Signs Vital signs: Vital Signs Temp 97.6 F 06/27/21 05:00 Pulse 67 06/27/21 05:00 Resp 20 06/27/21 05:00 BP 138/68 06/27/21 05:00 Pulse Ox 95 06/27/21 05:00 Intake & Output 06/26/21 06/27/21 06/27/21 18:59 06:59 18:59 Intake Total 240 540 Balance 240 540 Intake: Oral 240 540 Other: Voiding Method Toilet Toilet Toilet # Voids 3 2 - Labs CBC & Chem 7: 06/26/21 06:15 06/26/21 06:15 Labs: Abnormal Lab Results - Last 24 Hours (Table) 06/26/21 06/26/21 06/27/21 Range/Units 17:27 20:23 07:15 POC Glucose (mg/dL) 171 H 190 H 192 H (75-99) mg/dL Microbiology - Last 24 Hours (Table) 06/25/21 17:10 Blood Culture - Preliminary Blood No Growth after 24 hours 06/25/21 17:10 Blood Culture - Preliminary Blood No Growth after 24 hours
[2021-06-27 11:43] LABS: Glucose,Whole Blood 251 mg/dL (75-99)
--- NOTE | 2021-06-27 13:10 | P.PN ---
Subjective Progress Note Date: 06/27/21 On today's evaluation 06/27/2021, the patient continues to be having some cough and congestion. COPD exacerbation continues to be active. The patient remains on DuoNeb nebulized treatments around the clock. The patient is also on IV Solu Medrol 60 mg every 6 hours. The patient remains on Lovenox 40 mg subcu for DVT prophylaxis. The patient is on Omnicef. No altered mentation. No pleurisy. No hemoptysis. No chest pain. No significant sputum production. Objective - Vital Signs Vital signs: Vital Signs Temp 97.9 F 06/27/21 11:44 Pulse 63 06/27/21 11:44 Resp 19 06/27/21 11:44 BP 118/68 06/27/21 11:44 Pulse Ox 93 L 06/27/21 11:44 Intake & Output 06/26/21 06/27/21 06/27/21 18:59 06:59 18:59 Intake Total 240 540 Balance 240 540 Intake: Oral 240 540 Other: Voiding Method Toilet Toilet Toilet # Voids 3 2 - Exam Gen. appearance the patient is calm and comfortable is on 2 L of oxygen by nasal cannula. She is not using excessive muscle breathing. Head exam was generally normal. There was no scleral icterus or corneal arcus. Mucous membranes were moist. Neck was supple and without jugular venous distension, thyromegaly, or carotid bruits. Carotids were easily palpable bilaterally. There was no adenopathy. Lungs sounds are diminished and the patient has diffuse expiratory wheezes throughout the lung his bilaterally Cardiac exam revealed the PMI to be normally situated and sized. The rhythm was regular and no extrasystoles were noted during several minutes of auscultation. The first and second heart sounds were normal and physiologic splitting of the second heart sound was noted. There were no murmurs, rubs, clicks, or gallops. Abdominal exam revealed normal bowel sounds. The abdomen was soft, non-tender, and without masses, organomegaly, or appreciable enlargement of the abdominal aorta. Examination of the extremities revealed easily palpable radial, femoral and pedal pulses. There was no cyanosis, clubbing or edema. Examination of the skin revealed no evidence of significant rashes, suspicious appearing nevi or other concerning lesions. Neurologically, the patient is awake and alert and the patient does not have any focal neurological deficit. Cranial nerves are essentially intact. - Labs CBC & Chem 7: 06/26/21 06:15 06/26/21 06:15 Labs: Abnormal Lab Results - Last 24 Hours (Table) 06/26/21 06/26/21 06/27/21 Range/Units 17:27 20:23 07:15 POC Glucose (mg/dL) 171 H 190 H 192 H (75-99) mg/dL 06/27/21 Range/Units 11:39 POC Glucose (mg/dL) 251 H (75-99) mg/dL Microbiology - Last 24 Hours (Table) 06/25/21 17:10 Blood Culture - Preliminary Blood No Growth after 24 hours 06/25/21 17:10 Blood Culture - Preliminary Blood No Growth after 24 hours Assessment and Plan Plan: 1 acute COPD exacerbation, with a component of an underlying tracheal bronchitis. No clear indication for pneumonia at this point in time. The patient presents to hospital because of acute hypoxic respiratory failure, and symptoms typical of COPD exacerbation. On the chest x-ray, left diaphragm is slightly elevated. COVID 19 and influenza screen was negative. Still symptomatic 2 acute hypoxic respiratory failure secondary to above 3 chronic smoker 4 shortness of breath secondary to above 5 hypertension 6 hyperlipidemia 7 mild elevation of left hemidiaphragm is noted on today's chest x-ray Plan Clinically symptomatic Adenomatous medication and the patient is currently on Mucinex Continue bronchodilators, steroids and antibiotics Optimize respiratory status Nicotine patch Smoking cessation counseling We'll continue to follow
[2021-06-27 17:16] LABS: Glucose,Whole Blood 152 mg/dL (75-99)
[2021-06-27] MEDS: FLUTICASONE 50MCG/SPRAY NASAL 16GM EA NOSTRIL SCH (20:14)
[2021-06-27] MEDS: ATORVASTATIN 80 MG TAB PO SCH (20:14)
[2021-06-27 20:56] LABS: Glucose,Whole Blood 141 mg/dL (75-99)
[2021-06-28] MEDS: methylPREDNISolone SOD SUCCI 125 MG/2 ML VIAL IV SCH ×3 (05:29→17:42)
[2021-06-28 07:03] LABS: Glucose,Whole Blood 143 mg/dL (75-99)
[2021-06-28] MEDS: BUDESONIDE 1 MG/2 ML NEBU INHALATION SCH ×2 (07:26→19:19)
[2021-06-28] MEDS: INSULIN ASPART (NovoLOG) 100 UNIT/ML VIAL SQ SCH ×4 (09:03→21:41)
[2021-06-28] MEDS: CEFDINIR 300 MG CAP PO SCH ×2 (09:04→21:41)
[2021-06-28] MEDS: NICOTINE 14MG/24HR PATCH TRANSDERM SCH (09:04)
[2021-06-28] MEDS: guaiFENesin 600 MG TABLET.ER PO SCH ×2 (09:05→21:41)
[2021-06-28] MEDS: ASPIRIN 81 MG PO SCH (09:05)
[2021-06-28] MEDS: CYANOCOBALAMIN 500 MCG TAB PO SCH (09:05)
[2021-06-28] MEDS: hydroCHLOROthiazide 25 MG TAB PO SCH (09:05)
[2021-06-28] MEDS: ENOXAPARIN 40 MG/0.4 ML SYRINGE SQ SCH (09:05)
[2021-06-28] MEDS: CHOLECALCIFEROL 25 MCG (1000 IU) TABLET PO SCH (09:05)
[2021-06-28] MEDS: atenoloL 50 MG TAB PO SCH (09:05)
--- NOTE | 2021-06-28 10:45 | P.PN ---
Subjective Progress Note Date: 06/28/21 HISTORY OF PRESENT ILLNESS 75-year-old female one of Dr. Cerda's patient with past medical history of chronic smoking, COPD, hypertension and hyperlipidemia who was diagnosed with mild COPD in the past has not been hospitalized with any complication related COPD or Covid last few years. Patient presented to the emergency department at [facility] on 06/25/2021 with significant shortness of breath cough wheezes with severe tightness and cough predictive dark phlegm. Patient apparently had failed to keep her symptoms under control on outpatient inhaler. Her emergency workup initially with white blood cell was 10,800 mildly hypokalemia with mildly elevated lactic acid at 2.2 with slightly abnormal liver function test with Covid 19 negative, with negative influenza A and B. Patient was giving multiple dose of nebulizer management in the emergency room with failure to bring her pulse ox above 90 percentile initially was in the mid 80 with 2-3 L of O2 a pulse ox rice to be above 90 percentile. Patient was giving Solu-Medrol, Rocephin and started on nebulizer treatment [id number] will be admitted to the hospital for acute respiratory failure. 06/26: Patient states that her breathing is improved today. Lungs continue to be tight with noted cough with worse breath sounds on the right side. We will repeat chest x-ray for tomorrow. Patient has been afebrile, heart rate 65, blood pressure 152/63, pulse ox 96% on 3 L nasal cannula. Discussed smoking cessation again with the patient and she is agreeable to stop now and has nicotine patich in place. She does not have O2/nebulizer at home which she may require at discharge Anticipate probable discharge home by Tuesday. 06/27: patient is found sitting up in bed. She is complaining of consistent cough in the morning. She is unable to bring anything up from the cough. Patient states that she has not kept up during the night with the cough that is only happening in the morning and as the day progresses it would be significantly lessened. Patient is experiencing some inspiratory wheezes. No other complaints or concerns. patient remains afebrile, heart rate 67, respirations 20, blood pressure 130/68, 95% on 2 L. 06/28: She is found sleeping she is easily arousable. Patient states that the cough has improved compared to yesterday. Continues to have audible wheezes. We will continue with Solu-Medrol 60 mg every 6 hours. Patient has no complaints or concerns at this time. Patient remains afebrile, pulse rate 59, respirations 16, blood pressure 127 and 57, pulse ox 98% on 2 L. REVIEW OF SYSTEMS Constitutional: No fever, no chills, no night sweats. No weight change. No weakness, fatigue or lethargy. No daytime sleepiness. EENT: No headache. No blurred vision or double vision, no loss of vision. No loss of Hearing, no ringing in the ears, no dizziness. No nasal drainage or congestion. No epistaxis. No sore throat. Lungs: significant shortness of breath, reports cough wheezes with significant respiratory failure this point. Sputum production and mild tightness with deep inspiration. Cardiovascular: No chest pain, no lower extremity edema. No palpitations. No paroxysmal nocturnal dyspnea. No orthopnea. No lightheadedness or dizziness. No syncopal episodes. Abdominal: No abdominal pain. No nausea, vomiting. No diarrhea. No constipation. No bloody or tarry stools.. No loss of appetite. Genitourinary: No dysuria, increased frequency, urgency. No urinary retention. Musculoskeletal: No myalgias. No muscle weakness, no gait dysfunction, no frequent falls. No back pain. No neck pain. Integumentary: No wounds, no lesions. No rash or pruritus. No unusual bruising. No change in hair or nails. Neurologic: No aphasia. No facial droop. No change in mentation. No head injury. No headache. No paralysis. No paresthesia. Psychiatric: No depression. No anxiety. No mood swings. Endocrine: No abnormal blood sugars. No weight change. No excessive sweating or thirst. No cold intolerance. PHYSICAL EXAMINATION Gen: This is well-developed sitting up in bed having mild tachypnea in mild respiratory distress. HEENT: Head is atraumatic, normocephalic. Pupils equal, round. Sclerae is anicteric. NECK: Supple. No JVD. No lymphadenopathy. No thyromegaly. LUNGS: decreased expansion with inspiration positive for rhonchi especially in the bases positive mild inspiratory expiratory wheezes. HEART: Regular rate and rhythm. No murmur. has mild tachycardia. ABDOMEN: Soft. Bowel sounds are present. No masses. No tenderness. EXTREMITIES: No pedal edema. No calf tenderness. NEUROLOGICAL: Patient is awake, alert and oriented x3. Cranial nerves 2 through 12 are grossly intact. ASSESSMENT AND PLAN 1.severe dyspnea and acute respiratory failure: Secondary to COPD exacerbation,and bronchitis. Patient will be admitted to the hospital continue O2, if needed BiPAP use, will consult pulmonary, was start patient on IV Solu- Medrol along with DuoNeb and Pulmicort. 2 COPD exacerbation: With chronic history of smoking for over 40 years, she'll be seen pulmonary, continue aggressive management and treatment for COPD at this point. 3 acute severe bronchitis: Most likely atypical with patient's current symptoms was started on Rocephin initially and switched to Omnicef continue medication. 4 mildly elevated lactic acid: With no sign of sepsis with hydration lactic acid came down to normal keep watching for any sign of sepsis at this point. 5. Chronic hypoxic respiratory failure requiring home O2 therapy in order to manage her COPD and perform ADLs. patient requires nebulizer with DuoNeb treatment 4 times a day to manage diagnosis of COPD exacerbation. Flonase 2 puffs each nostril at night, start Mucinex. 6 abnormal liver function tests: With no sign of hepatitis repeat CMP tomorrow and if needed ultrasound of the liver will be done. 7 hypokalemia: Most likely secondary to medication the patient is on hydrocodone chlorothiazide potassium supplements will be done repeat potassium magnesium level tomorrow. 8 chronic history of smoking: Smoking cessation was addressed patient be started nicotine patch at this point. 9 hypertension: Continue patient on atenolol 50 mg a day along with hydrochlorothiazide. 10 hyperlipidemia: Continue patient on atorvastatin 80 mg daily. 11 severe GERD/GI prophylaxis: Patient has been on omeprazole 20 mg every 48 hours and switch it to every day at this point. 12 DVT prophylaxis: Patient will be on Lovenox 40 mg daily. 13. COVID-19 testing.was negative patient was admitted to the hospital during pandemic time. DISCHARGE PLAN Home most likely on Tuesday Impression and plan of care have been directed as dictated by the signing physician. Lisha Turcios nurse practitioner acting as scribe for signing physician. Objective - Vital Signs Vital signs: Vital Signs Temp 97.9 F 06/28/21 05:00 Pulse 59 L 06/28/21 05:00 Resp 16 06/28/21 05:00 BP 127/57 06/28/21 05:00 Pulse Ox 98 06/28/21 05:00 Intake & Output 06/27/21 06/28/21 06/28/21 18:59 06:59 18:59 Other: Voiding Method Toilet Toilet # Voids 3 3 - Labs CBC & Chem 7: 06/26/21 06:15 06/26/21 06:15 Labs: Abnormal Lab Results - Last 24 Hours (Table) 06/27/21 06/27/21 06/27/21 Range/Units 11:39 17:14 20:55 POC Glucose (mg/dL) 251 H 152 H 141 H (75-99) mg/dL 06/28/21 Range/Units 07:00 POC Glucose (mg/dL) 143 H (75-99) mg/dL Microbiology - Last 24 Hours (Table) 06/25/21 17:10 Blood Culture - Preliminary Blood No Growth after 48 hours 06/25/21 17:10 Blood Culture - Preliminary Blood No Growth after 48 hours
[2021-06-28 11:45] LABS: Glucose,Whole Blood 264 mg/dL (75-99)
--- NOTE | 2021-06-28 12:59 | P.PN ---
Subjective Progress Note Date: 06/28/21 On 06/28/2021, the patient is improved less congested and less short of breath compared to yesterday. Workup also subsided and the patient is taking Mucinex [id number]. No nausea. No vomiting. No chest pain. She remains on Omnicef. She is on DuoNeb nebulizers [id number] and she's also on IV Solu-Medrol. No chest pain. No angina. No palpitations. No signs of any CO2 narcosis. No new labs are available from today. Blood sugar is elevated due to use of systemic steroids and the patient is on NovoLog sinus tach coverage. Objective - Vital Signs Vital signs: Vital Signs Temp 97.4 F L 06/28/21 11:27 Pulse 46 L 06/28/21 11:27 Resp 18 06/28/21 11:27 BP 138/68 06/28/21 11:27 Pulse Ox 90 L 06/28/21 11:27 Intake & Output 06/27/21 06/28/21 06/28/21 18:59 06:59 18:59 Other: Voiding Method Toilet Toilet Toilet # Voids 3 3 - Exam Gen. appearance the patient is calm and comfortable is on 2 L of oxygen by nasal cannula. She is not using excessive muscle breathing. Head exam was generally normal. There was no scleral icterus or corneal arcus. Mucous membranes were moist. Neck was supple and without jugular venous distension, thyromegaly, or carotid bruits. Carotids were easily palpable bilaterally. There was no adenopathy. Lungs sounds are diminished and the patient has diffuse expiratory wheezes throughout the lung his bilaterally Cardiac exam revealed the PMI to be normally situated and sized. The rhythm was regular and no extrasystoles were noted during several minutes of auscultation. The first and second heart sounds were normal and physiologic splitting of the second heart sound was noted. There were no murmurs, rubs, clicks, or gallops. Abdominal exam revealed normal bowel sounds. The abdomen was soft, non-tender, a nd without masses, organomegaly, or appreciable enlargement of the abdominal aorta. Examination of the extremities revealed easily palpable radial, femoral and pedal pulses. There was no cyanosis, clubbing or edema. Examination of the skin revealed no evidence of significant rashes, suspicious appearing nevi or other concerning lesions. Neurologically, the patient is awake and alert and the patient does not have any focal neurological deficit. Cranial nerves are essentially intact. - Labs CBC & Chem 7: 06/26/21 06:15 06/26/21 06:15 Labs: Abnormal Lab Results - Last 24 Hours (Table) 06/27/21 06/27/21 06/28/21 Range/Units 17:14 20:55 07:00 POC Glucose (mg/dL) 152 H 141 H 143 H (75-99) mg/dL 06/28/21 Range/Units 11:30 POC Glucose (mg/dL) 264 H (75-99) mg/dL Microbiology - Last 24 Hours (Table) 06/25/21 17:10 Blood Culture - Preliminary Blood No Growth after 48 hours 06/25/21 17:10 Blood Culture - Preliminary Blood No Growth after 48 hours Assessment and Plan Plan: 1 acute COPD exacerbation, with a component of an underlying tracheal bronchitis. No clear indication for pneumonia at this point in time. The patient presents to hospital because of acute hypoxic respiratory failure, and symptoms typical of COPD exacerbation. On the chest x-ray, left diaphragm is slightly elevated. COVID 19 and influenza screen was negative. Clinically improving on today's evaluation with above-mentioned treatment. 2 acute hypoxic respiratory failure secondary to above 3 chronic smoker 4 shortness of breath secondary to above 5 hypertension 6 hyperlipidemia 7 mild elevation of left hemidiaphragm is noted on today's chest x-ray Plan Clinically symptomatic Continue Mucinex for cough and congestion Continue bronchodilators, steroids and antibiotics, the patient is on oral Omnicef Optimize respiratory status Increase mobility Nicotine patch Smoking cessation counseling We'll continue to follow
[2021-06-28 16:59] LABS: Glucose,Whole Blood 169 mg/dL (75-99)
[2021-06-28] MEDS: ATORVASTATIN 80 MG TAB PO SCH (21:41)
[2021-06-28] MEDS: FLUTICASONE 50MCG/SPRAY NASAL 16GM EA NOSTRIL SCH (21:43)
[2021-06-28 21:45] LABS: Glucose,Whole Blood 170 mg/dL (75-99)
[2021-06-29] MEDS: methylPREDNISolone SOD SUCCI 125 MG/2 ML VIAL IV SCH ×2 (00:05→05:43)
[2021-06-29 07:40] LABS: Glucose,Whole Blood 174 mg/dL (75-99)
[2021-06-29] MEDS ORDERED: FUROSEMIDE 10 MG/ML 2 ML VIAL IV STA (08:27)
[2021-06-29] MEDS: ASPIRIN 81 MG PO SCH (08:29)
[2021-06-29] MEDS: CHOLECALCIFEROL 25 MCG (1000 IU) TABLET PO SCH (08:29)
[2021-06-29] MEDS: CYANOCOBALAMIN 500 MCG TAB PO SCH (08:29)
[2021-06-29] MEDS: hydroCHLOROthiazide 25 MG TAB PO SCH (08:30)
[2021-06-29] MEDS: NICOTINE 14MG/24HR PATCH TRANSDERM SCH (08:30)
[2021-06-29] MEDS: atenoloL 50 MG TAB PO SCH (08:30)
[2021-06-29] MEDS: guaiFENesin 600 MG TABLET.ER PO SCH ×2 (08:30→20:39)
[2021-06-29] MEDS: INSULIN ASPART (NovoLOG) 100 UNIT/ML VIAL SQ SCH ×4 (08:30→20:39)
[2021-06-29] MEDS: CEFDINIR 300 MG CAP PO SCH ×2 (08:30→20:39)
[2021-06-29] MEDS: ENOXAPARIN 40 MG/0.4 ML SYRINGE SQ SCH (08:31)
[2021-06-29] MEDS: PANTOPRAZOLE 40 MG TABLET PO SCH (08:31)
--- NOTE | 2021-06-29 10:12 | P.PN ---
Subjective Progress Note Date: 06/29/21 HISTORY OF PRESENT ILLNESS 75-year-old female one of Dr. Cerda's patient with past medical history of chronic smoking, COPD, hypertension and hyperlipidemia who was diagnosed with mild COPD in the past has not been hospitalized with any complication related COPD or Covid last few years. Patient presented to the emergency department at [facility] on 06/25/2021 with significant shortness of breath cough wheezes with severe tightness and cough predictive dark phlegm. Patient apparently had failed to keep her symptoms under control on outpatient inhaler. Her emergency workup initially with white blood cell was 10,800 mildly hypokalemia with mildly elevated lactic acid at 2.2 with slightly abnormal liver function test with Covid 19 negative, with negative influenza A and B. Patient was giving multiple dose of nebulizer management in the emergency room with failure to bring her pulse ox above 90 percentile initially was in the mid 80 with 2-3 L of O2 a pulse ox rice to be above 90 percentile. Patient was giving Solu-Medrol, Rocephin and started on nebulizer treatment [id number] will be admitted to the hospital for acute respiratory failure. 06/26: Patient states that her breathing is improved today. Lungs continue to be tight with noted cough with worse breath sounds on the right side. We will repeat chest x-ray for tomorrow. Patient has been afebrile, heart rate 65, blood pressure 152/63, pulse ox 96% on 3 L nasal cannula. Discussed smoking cessation again with the patient and she is agreeable to stop now and has nicotine patich in place. She does not have O2/nebulizer at home which she may require at discharge Anticipate probable discharge home by Tuesday. 06/27: patient is found sitting up in bed. She is complaining of consistent cough in the morning. She is unable to bring anything up from the cough. Patient states that she has not kept up during the night with the cough that is only happening in the morning and as the day progresses it would be significantly lessened. Patient is experiencing some inspiratory wheezes. No other complaints or concerns. patient remains afebrile, heart rate 67, respirations 20, blood pressure 130/68, 95% on 2 L. 06/28: She is found sleeping she is easily arousable. Patient states that the cough has improved compared to yesterday. Continues to have audible wheezes. We will continue with Solu-Medrol 60 mg every 6 hours. Patient has no complaints or concerns at this time. Patient remains afebrile, pulse rate 59, respirations 16, blood pressure 127 and 57, pulse ox 98% on 2 L. 06/29: Patient is off oxygen and pulse oximetry 98%. Doubt the patient will need home oxygen and within the next 24 hours we'll have a reassessment of oxygen need. Patient's breathing is improving today. We will decrease Solu-Medrol and start her on prednisone tomorrow with plan for discharge home tomorrow. REVIEW OF SYSTEMS Constitutional: No fever, no chills, no night sweats. No weight change. No weakness, fatigue or lethargy. No daytime sleepiness. EENT: No headache. No blurred vision or double vision, no loss of vision. No loss of Hearing, no ringing in the ears, no dizziness. No nasal drainage or congestion. No epistaxis. No sore throat. Lungs: No shortness of breath, reports cough improved wheezes improved. Cardiovascular: No chest pain, no lower extremity edema. No palpitations. No paroxysmal nocturnal dyspnea. No orthopnea. No lightheadedness or dizziness. No syncopal episodes. Abdominal: No abdominal pain. No nausea, vomiting. No diarrhea. No constipation. No bloody or tarry stools.. No loss of appetite. Genitourinary: No dysuria, increased frequency, urgency. No urinary retention. Musculoskeletal: No myalgias. No muscle weakness, no gait dysfunction, no frequent falls. No back pain. No neck pain. Integumentary: No wounds, no lesions. No rash or pruritus. No unusual bruising. No change in hair or nails. Neurologic: No aphasia. No facial droop. No change in mentation. No head injury. No headache. No paralysis. No paresthesia. Psychiatric: No depression. No anxiety. No mood swings. Endocrine: No abnormal blood sugars. No weight change. No excessive sweating or thirst. No cold intolerance. PHYSICAL EXAMINATION Gen: This is well-developed sitting up in bed in no acute respiratory distress. HEENT: Head is atraumatic, normocephalic. Pupils equal, round. Sclerae is anicteric. NECK: Supple. No JVD. No lymphadenopathy. No thyromegaly. LUNGS: Few scattered rhonchi. HEART: Regular rate and rhythm. No murmur. has mild tachycardia. ABDOMEN: Soft. Bowel sounds are present. No masses. No tenderness. EXTREMITIES: No pedal edema. No calf tenderness. NEUROLOGICAL: Patient is awake, alert and oriented x3. Cranial nerves 2 through 12 are grossly intact. ASSESSMENT AND PLAN 1.severe dyspnea and acute respiratory failure: Secondary to COPD exacerbation,and bronchitis. We will decrease Solu-Medrol to 40 mg every 8 hours and start prednisone in the morning, continue DuoNeb treatments, Pulmicort, Omnicef, Perforomist, Mucinex. 2 COPD exacerbation. Continue as in #1. 3 acute severe bronchitis. Continue Omnicef. 4 mildly elevated lactic acid: With no sign of sepsis. 5. Chronic hypoxic respiratory failure requiring home O2 therapy --doubt need for home oxygen therapy 6 abnormal liver function tests: With no sign of hepatitis repeat CMP tomorrow and if needed ultrasound of the liver will be done. 7 hypokalemia: Most likely secondary to medication the patient is on hydrocodone chlorothiazide potassium supplements will be done repeat potassium magnesium level tomorrow. 8 chronic history of smoking: Smoking cessation was addressed patient be started nicotine patch at this point. 9 hypertension: Continue patient on atenolol 50 mg a day along with hydrochlorothiazide. 10 hyperlipidemia: Continue patient on atorvastatin 80 mg daily. 11 severe GERD/GI prophylaxis: Patient has been on omeprazole 20 mg every 48 hours and switch it to every day at this point. 12 DVT prophylaxis: Patient will be on Lovenox 40 mg daily. 13. COVID-19 testing.was negative patient was admitted to the hospital during pandemic time. DISCHARGE PLAN Home most likely on Tuesday Impression and plan of care have been directed as dictated by the signing physician. Mary Blum nurse practitioner acting as scribe for signing physician. Objective - Vital Signs Vital signs: Vital Signs Temp 97.6 F 06/29/21 04:50 Pulse 57 L 06/29/21 07:53 Resp 18 06/29/21 07:53 BP 136/61 06/29/21 07:53 Pulse Ox 92 L 06/29/21 07:53 Intake & Output 06/28/21 06/29/21 06/29/21 18:59 06:59 18:59 Intake Total 200 Balance 200 Intake: Oral 200 Other: Voiding Method Toilet Toilet # Voids 3 1 - Labs CBC & Chem 7: 06/26/21 06:15 06/26/21 06:15 Labs: Abnormal Lab Results - Last 24 Hours (Table) 06/28/21 06/28/21 06/28/21 Range/Units 11:30 16:54 21:37 POC Glucose (mg/dL) 264 H 169 H 170 H (75-99) mg/dL 06/29/21 Range/Units 07:38 POC Glucose (mg/dL) 174 H (75-99) mg/dL Microbiology - Last 24 Hours (Table) 06/25/21 17:10 Blood Culture - Preliminary Blood No Growth after 72 hours 06/25/21 17:10 Blood Culture - Preliminary Blood No Growth after 72 hours
[2021-06-29] MEDS: BUDESONIDE 1 MG/2 ML NEBU INHALATION SCH ×2 (11:07→20:06)
--- NOTE | 2021-06-29 11:17 | P.PN ---
Subjective Progress Note Date: 06/29/21 Principal diagnosis: Shortness of breath coughing and wheezing On 06/29/2021 patient seen in follow-up on medical surgical floor. She is currently up ambulating in the room, still quite bronchospastic, wheezing, coughing. Physical exam reveals scattered crackles. Patient is wearing oxygen intermittently at 2-3 L. She has been afebrile. Last chest x-ray on 06/27/2021 showed no acute cardiopulmonary process. Patient currently remains on IV steroids at 60 mg every 6 hours, nebulized bronchodilators Pulmicort, and when necessary DuoNeb. Objective - Vital Signs Vital signs: Vital Signs Temp 97.6 F 06/29/21 04:50 Pulse 57 L 06/29/21 07:53 Resp 18 06/29/21 07:53 BP 136/61 06/29/21 07:53 Pulse Ox 92 L 06/29/21 07:53 Intake & Output 06/28/21 06/29/21 06/29/21 18:59 06:59 18:59 Intake Total 200 Balance 200 Intake: Oral 200 Other: Voiding Method Toilet Toilet Toilet # Voids 3 1 1 - Exam GENERAL EXAM: Alert, very pleasant, 75-year-old white female, on 3 L oxygen with a pulse ox of 92-98% comfortable in no apparent distress. HEAD: Normocephalic/atraumatic. EYES: Normal reaction of pupils, equal size. Conjunctiva pink, sclera white. NOSE: Clear with pink turbinates. THROAT: No erythema or exudates. NECK: No masses, no JVD, no thyroid enlargement, no adenopathy. CHEST: No chest wall deformity. Symmetrical expansion. LUNGS: Equal air entry with crackles, wheezes CVS: Regular rate and rhythm, normal S1 and S2, no gallops, no murmurs, no rubs ABDOMEN: Soft, nontender. No hepatosplenomegaly, normal bowel sounds, no guarding or rigidity. EXTREMITIES: No clubbing, no edema, no cyanosis, 2+ pulses and upper and lower extremities. MUSCULOSKELETAL: Muscle strength and tone normal. SPINE: No scoliosis or deformity SKIN: No rashes CENTRAL NERVOUS SYSTEM: Alert and oriented -3. No focal deficits, tone is normal in all 4 extremities. PSYCHIATRIC: Alert and oriented -3. Appropriate affect. Intact judgment and insight. - Labs CBC & Chem 7: 06/26/21 06:15 06/26/21 06:15 Labs: Abnormal Lab Results - Last 24 Hours (Table) 06/28/21 06/28/21 06/28/21 Range/Units 11:30 16:54 21:37 POC Glucose (mg/dL) 264 H 169 H 170 H (75-99) mg/dL 06/29/21 Range/Units 07:38 POC Glucose (mg/dL) 174 H (75-99) mg/dL Microbiology - Last 24 Hours (Table) 06/25/21 17:10 Blood Culture - Preliminary Blood No Growth after 72 hours 06/25/21 17:10 Blood Culture - Preliminary Blood No Growth after 72 hours Assessment and Plan Plan: acute COPD exacerbation, with a component of an underlying tracheal bronchitis. No clear indication for pneumonia at this point in time. The patient presents to hospital because of acute hypoxic respiratory failure, and symptoms typical of COPD exacerbation. On the chest x-ray, left diaphragm is slightly elevated. COVID 19 and influenza screen was negative. Clinically improving on today's evaluation with above-mentioned treatment. acute hypoxic respiratory failure secondary to above chronic smoker shortness of breath secondary to above hypertension hyperlipidemia mild elevation of left hemidiaphragm is noted on today's chest x-ray Plan: Continue IV steroids Add scheduled DuoNeb, and Perforomist continue Pulmicort Patient will benefit from one dose of IV Lasix Follow-up chest x-ray and labs tomorrow Not quite ready for discharge I have personally seen and examined the patient, performed the documentation and the assessment and plan as written. Number of minutes spent on the visit: [10] Time with Patient: Less than 30
[2021-06-29] MEDS: IPRATROPIUM-ALBUTEROL 3 ML NEB INHALATION SCH ×3 (11:29→20:13)
[2021-06-29 12:44] LABS: Glucose,Whole Blood 196 mg/dL (75-99)
[2021-06-29] MEDS ORDERED: methylPREDNISolone SOD SUCCI 40 MG/ML 1 ML VIAL IV SCH (16:00)
[2021-06-29 17:30] LABS: Glucose,Whole Blood 170 mg/dL (75-99)
[2021-06-29] MEDS: FORMOTEROL FUMARATE 20 MCG/2 ML NEBU INHALATION SCH (20:07)
[2021-06-29 20:12] LABS: Glucose,Whole Blood 284 mg/dL (75-99)
[2021-06-29] MEDS: FLUTICASONE 50MCG/SPRAY NASAL 16GM EA NOSTRIL SCH (20:39)
[2021-06-29] MEDS: ATORVASTATIN 80 MG TAB PO SCH (20:39)
[2021-06-30 07:22] LABS: Glucose,Whole Blood 166 mg/dL (75-99)
--- NOTE | 2021-06-30 08:04 | P.DS ---
Providers Date of admission: 06/25/21 19:34 Expected date of discharge: 06/30/21 Attending physician: Castro Diego Consults: 06/25/21 21:40 Consult Physician Routine Consulting Provider: Felix Bourgeois Consult Reason/Comments: COPD Excarebation Do you want consulting provider notified?: Yes Primary care physician: Tj Cerda [facility] Course: HISTORY OF PRESENT ILLNESS 75-year-old female one of Dr. Cerda's patient with past medical history of chronic smoking, COPD, hypertension and hyperlipidemia who was diagnosed with mild COPD in the past has not been hospitalized with any complication related COPD or Covid last few years. Patient presented to the emergency department at [facility] on 06/25/2021 with significant shortness of breath cough wheezes with severe tightness and cough predictive dark phlegm. Patient apparently had failed to keep her symptoms under control on outpatient inhaler. Her emergency workup initially with white blood cell was 10,800 mildly hypokalemia with mildly elevated lactic acid at 2.2 with slightly abnormal liver function test with Covid 19 negative, with negative influenza A and B. Patient was giving multiple dose of nebulizer management in the emergency room with failure to bring her pulse ox above 90 percentile initially was in the mid 80 with 2-3 L of O2 a pulse ox rice to be above 90 percentile. Patient was giving Solu-Medrol, Rocephin and started on nebulizer treatment [id number] will be admitted to the hospital for acute respiratory failure. 06/26: Patient states that her breathing is improved today. Lungs continue to be tight with noted cough with worse breath sounds on the right side. We will repeat chest x-ray for tomorrow. Patient has been afebrile, heart rate 65, blood pressure 152/63, pulse ox 96% on 3 L nasal cannula. Discussed smoking cessation again with the patient and she is agreeable to stop now and has nicotine patich in place. She does not have O2/nebulizer at home which she may require at discharge Anticipate probable discharge home by Tuesday. 06/27: patient is found sitting up in bed. She is complaining of consistent cough in the morning. She is unable to bring anything up from the cough. Patient states that she has not kept up during the night with the cough that is only happening in the morning and as the day progresses it would be significantly lessened. Patient is experiencing some inspiratory wheezes. No other complaints or concerns. patient remains afebrile, heart rate 67, respirations 20, blood pressure 130/68, 95% on 2 L. 06/28: She is found sleeping she is easily arousable. Patient states that the cough has improved compared to yesterday. Continues to have audible wheezes. We will continue with Solu-Medrol 60 mg every 6 hours. Patient has no complaints or concerns at this time. Patient remains afebrile, pulse rate 59, respirations 16, blood pressure 127 and 57, pulse ox 98% on 2 L. 06/29: Patient is off oxygen and pulse oximetry 98%. Doubt the patient will need home oxygen and within the next 24 hours we'll have a reassessment of oxygen need. Patient's breathing is improving today. We will decrease Solu-Medrol and start her on prednisone tomorrow with plan for discharge home tomorrow. 06/30: Patient's breathing status is improved. Home oxygen assessment this morning, patient dropped to 56% on room air with exercise. Home oxygen therapy has been arranged. Patient has been afebrile, heart rate in the 50s, blood pressure 152/70. Patient will also require nebulizer treatment. Blood sugars are running between 166 and 284. Patient will be discharged home today in stable condition. DISCHARGE DIAGNOSES 1.severe dyspnea and acute respiratory failure: Secondary to COPD exacerbation,and bronchitis. 2 COPD exacerbation. 3 acute severe bronchitis. 4 mildly elevated lactic acid: With no sign of sepsis. 5. Chronic hypoxic respiratory failure requiring home O2 therapy. 6 abnormal liver function tests: With no sign of hepatitis repeat 7 hypokalemia 8 chronic history of smoking: Smoking cessation 9 hypertension 10 hyperlipidemia 11 severe GERD DISCHARGE PLAN Home with [facility] Greater than 35 minutes was utilized and coordinating patient's discharge. Impression and plan of care have been directed as dictated by the signing physician. Mary Blum nurse practitioner acting as scribe for signing physician. Patient Condition at Discharge: Good Plan - Discharge Summary New Discharge Prescriptions: New guaiFENesin [Mucinex] 1,200 mg PO Q12HR tablet Cefdinir [Omnicef] 300 mg PO BID #6 cap Budesonide [Pulmicort] 1 mg INHALATION RT-BID #120 ml Ipratropium-Albuterol Nebulize [Duoneb 0.5 mg-3 mg/3 ml Soln] 3 ml INHALATION RT-QID #360 ml Nicotine 14Mg/24Hr Patch [Habitrol] 1 patch TRANSDERM DAILY #30 patch predniSONE 0 mg PO DIRECTED #30 tab Continue Omeprazole Magnesium [PriLOSEC OTC] 20 mg PO Q48H Fluticasone Nasal [place] [Flonase Nasal [place]] 2 spray EA NOSTRIL DAILY PRN PRN Reason: Allergy Symptoms Aspirin [[place]gett Aspirin EC] 81 mg PO DAILY Atorvastatin [Lipitor] 80 mg PO HS Cyanocobalamin [Vitamin B-12] 500 mcg PO DAILY Cholecalciferol [Vitamin D3 (25 Mcg = 1000 Iu)] 25 mcg PO DAILY hydroCHLOROthiazide [Hydrodiuril] 25 mg PO DAILY Meclizine HCl 25 mg PO TID PRN PRN Reason: Vertigo Atenolol [Tenormin] 50 mg PO DAILY Discharge Medication List Aspirin [[place]gett Aspirin EC] 81 mg PO DAILY 06/25/21 [History] Atenolol [Tenormin] 50 mg PO DAILY 06/25/21 [History] Atorvastatin [Lipitor] 80 mg PO HS 06/25/21 [History] Cholecalciferol [Vitamin D3 (25 Mcg = 1000 Iu)] 25 mcg PO DAILY 06/25/21 [History] Cyanocobalamin [Vitamin B-12] 500 mcg PO DAILY 06/25/21 [History] Fluticasone Nasal [place] [Flonase Nasal [place]] 2 spray EA NOSTRIL DAILY PRN 06/25/21 [History] Meclizine HCl 25 mg PO TID PRN 06/25/21 [History] Omeprazole Magnesium [PriLOSEC OTC] 20 mg PO Q48H 06/25/21 [History] hydroCHLOROthiazide [Hydrodiuril] 25 mg PO DAILY 06/25/21 [History] Budesonide [Pulmicort] 1 mg INHALATION RT-BID #120 ml 06/30/21 [Rx] Cefdinir [Omnicef] 300 mg PO BID #6 cap 06/30/21 [Rx] Ipratropium-Albuterol Nebulize [Duoneb 0.5 mg-3 mg/3 ml Soln] 3 ml INHALATION RT-QID #360 ml 06/30/21 [Rx] Nicotine 14Mg/24Hr Patch [Habitrol] 1 patch TRANSDERM DAILY #30 patch 06/30/21 [Rx] guaiFENesin [Mucinex] 1,200 mg PO Q12HR tablet 06/30/21 [Rx] predniSONE 0 mg PO DIRECTED #30 tab 06/30/21 [Rx] Follow up Appointment(s)/Referral(s): [facility] [NON-STAFF] - As Needed Care,[facility] [NON-STAFF] - As Needed Tj Cerda MD [Primary Care Provider] - 07/09/21 1:30 pm Discharge Disposition: HOME WITH HOME HEALTH SERVICES
--- NOTE | 2021-06-30 08:36 | XR ---
EXAMINATION TYPE: XR chest 1V portable DATE OF EXAM: 06/30/2021 Comparison: 06/27/2021 Clinical History: 75-year-old female shortness of breath Findings: Reverse right shoulder arthroplasty partially visualized. Heart borderline enlarged. Patchy opacity i nferior lingula has increased. Mild hyperinflation. Impression: Borderline heart size. COPD. Increased patchy left basilar atelectasis and/or infiltrate.
[2021-06-30] MEDS ORDERED: predniSONE 20 MG TAB PO SCH (09:00)
[2021-06-30] MEDS: ENOXAPARIN 40 MG/0.4 ML SYRINGE SQ SCH (09:01)
[2021-06-30] MEDS: NICOTINE 14MG/24HR PATCH TRANSDERM SCH (09:01)
[2021-06-30] MEDS: INSULIN ASPART (NovoLOG) 100 UNIT/ML VIAL SQ SCH ×2 (09:02→13:39)
[2021-06-30] MEDS: CHOLECALCIFEROL 25 MCG (1000 IU) TABLET PO SCH (09:03)
[2021-06-30] MEDS: CEFDINIR 300 MG CAP PO SCH (09:03)
[2021-06-30] MEDS: ASPIRIN 81 MG PO SCH (09:03)
[2021-06-30] MEDS: CYANOCOBALAMIN 500 MCG TAB PO SCH (09:04)
[2021-06-30] MEDS: guaiFENesin 600 MG TABLET.ER PO SCH (09:04)
[2021-06-30] MEDS: atenoloL 50 MG TAB PO SCH (09:05)
[2021-06-30] MEDS: hydroCHLOROthiazide 25 MG TAB PO SCH (09:05)
[2021-06-30] MEDS: BUDESONIDE 1 MG/2 ML NEBU INHALATION SCH (09:54)
[2021-06-30] MEDS: FORMOTEROL FUMARATE 20 MCG/2 ML NEBU INHALATION SCH (09:54)
[2021-06-30] MEDS: IPRATROPIUM-ALBUTEROL 3 ML NEB INHALATION SCH ×3 (09:54→15:46)
[2021-06-30 11:26] LABS: Glucose,Whole Blood 156 mg/dL (75-99)
--- NOTE | 2021-06-30 12:08 | P.PN ---
Subjective Progress Note Date: 06/30/21 Principal diagnosis: COPD exacerbation The patient is seen today 06/30/2021 in follow-up on the regular medical floor. She is currently sitting up in bed. Awake and alert in no acute distress. She is feeling nearly back to her baseline. She is maintaining O2 saturations in t he 90s on room air at rest. Chest x-ray reveals patchy opacity in the inferior lingula. Evidence of COPD. Blood cultures reveal no growth. Blood sugar 156. She is continued on DuoNeb inhalations, Pulmicort and Perforomist inhalations, prednisone. NicoDerm patches in place. Antibiotics in the form of Omnicef. Lovenox for DVT prophylaxis. Objective - Vital Signs Vital signs: Vital Signs Temp 98.6 F 06/30/21 08:54 Pulse 53 L 06/30/21 09:08 Resp 18 06/30/21 08:54 BP 152/70 06/30/21 08:54 Pulse Ox 94 L 06/30/21 09:08 Intake & Output 06/29/21 06/30/21 06/30/21 18:59 06:59 18:59 Intake Total 2580 1070 Balance 2580 1070 Intake: Oral 2580 1070 Other: Voiding Method Toilet Toilet Toilet # Voids 4 1 - Exam GENERAL EXAM: Alert, doesn't 75-year-old female patient, on room air, comfortable in no apparent distress. HEAD: Normocephalic. EYES: Normal reaction of pupils, equal size. NOSE: Clear with pink turbinates. THROAT: No erythema or exudates. NECK: No masses, no JVD. CHEST: No chest wall deformity. LUNGS: Equal air entry with few scattered rhonchi in the left midlung. CVS: S1 and S2 normal with no audible murmur, regular rhythm. ABDOMEN: No hepatosplenomegaly, normal bowel sounds, no guarding or rigidity. SPINE: No scoliosis or deformity SKIN: No rashes CENTRAL NERVOUS SYSTEM: No focal deficits, tone is normal in all 4 extremities. EXTREMITIES: There is no peripheral edema. No clubbing, no cyanosis. Peripheral pulses are intact. - Labs CBC & Chem 7: 06/26/21 06:15 06/26/21 06:15 Labs: Abnormal Lab Results - Last 24 Hours (Table) 06/29/21 06/29/2122 Range/Units 12:42 17:28 20:11 POC Glucose (mg/dL) 196 H 170 H 284 H (75-99) mg/dL 06/30/21 06/30/21 Range/Units 07:19 11:24 POC Glucose (mg/dL) 166 H 156 H (75-99) mg/dL Microbiology - Last 24 Hours (Table) 06/25/21 17:10 Blood Culture - Preliminary Blood No Growth after 96 hours 06/25/21 17:10 Blood Culture - Preliminary Blood No Growth after 96 hours Assessment and Plan Assessment: 1 Acute COPD exacerbation, with a component of an underlying tracheal bronchitis . No clear indication for pneumonia at this point in time. The patient presents to hospital because of acute hypoxic respiratory failure, and symptoms typical of COPD exacerbation. On the chest x-ray, left diaphragm is slightly elevated. COVID 19 and influenza screen was negative. Clinically improving. 2 Acute hypoxic respiratory failure secondary to above 3 Chronic smoker 4 Shortness of breath secondary to above 5 Hypertension 6 Hyperlipidemia 7 Mild elevation of left hemidiaphragm is noted on today's chest x-ray Plan: The patient was seen and evaluated Cleared for discharge from the pulmonary standpoint Continue a prednisone taper Complete a course of antibiotics Evaluate for possible home oxygen Continue her home pulmonary medications Educated regarding the importance of complete smoking cessation Follow-up in the office in 1-2 weeks' I have personally seen and examined the patient, performed the documentation and the assessment and plan as written. Number of minutes spent on the visit: 10.
[2021-06-30 12:14] VITALS: BP 140/64; PULSE 69; RESP 16; TEMP 99.1
== END 2021-06-30 16:36 | disposition home health service (06) | DRG 190 ==
LOC: EC 15:23 → 5NMEDONC 19:34
PROVIDERS: ADMIT Internal Medicine Geriatric Medicine; ATTEND Internal Medicine Geriatric Medicine
DX: J44.1 Chronic obstructive pulmonary disease with (acute) exacerbation (principal); J96.21 Acute and chronic respiratory failure with hypoxia; E87.2 Acidosis; J44.0 Chronic obstructive pulmonary disease with (acute) lower respiratory infection; J20.9 Acute bronchitis, unspecified; F17.210 Nicotine dependence, cigarettes, uncomplicated; Z71.6 Tobacco abuse counseling; E78.5 Hyperlipidemia, unspecified; E87.6 Hypokalemia; J98.6 Disorders of diaphragm; I10 Essential (primary) hypertension; K21.9 Gastro-esophageal reflux disease without esophagitis; Z20.822 Contact with and (suspected) exposure to COVID-19; Z82.3 Family history of stroke; Z80.9 Family history of malignant neoplasm, unspecified; Z82.49 Family history of ischemic heart disease and other diseases of the circulatory system; Z90.49 Acquired absence of other specified parts of digestive tract; Z79.82 Long term (current) use of aspirin; Z79.899 Other long term (current) drug therapy
CPT/HCPCS: 36415; 71045; 71046; 80053; 83605; 83880; 84484; 85025; 85027; 85379; 85610; 85730; 87040; 87636; 93005; 94640; 96374; 96375; 99291

== ENCOUNTER → 2023-02-11 | Outpatient (CLI) | payer MEDICARE ==
--- NOTE | 2023-02-11 15:13 | MR ---
EXAMINATION TYPE: MR brain and iac wo/w con DATE OF EXAM: 02/11/2023 COMPARISON: NONE HISTORY: 77-year-old female R42, Loss of hearing left side and sensitivity, dizziness. TECHNIQUE: Multiplanar, multisequence images of the brain and brainstem were acquired before and aft er administration of 6 mL IV Gadobutrol. Diffusion weighted imaging was performed. Additional coned -down sequences through the internal auditory canals and posterior cranial fossa before and after IV contrast administration. FINDINGS: Diffusion weighted images demonstrate no evidence of an acute ischemic lesion in the brain. T2/FLAIR weighted sequences show numerous bright signal foci throughout the subcortical, deep white m atter, and periventricular region of both cerebral hemispheres. Moderate overall burden. Patchy signa l changes also present within the bilateral paramedian liliane. Midline structures demonstrate normal morphology. The craniocervical junction is normal. There is [id number] cerebral atrophy. The ventricles are of normal caliber. There is no evidence of an acute intracranial hemorrhage, infarct, mass, mass-effect or an extra-axia l fluid collection. There is no cerebellopontine angle mass. The internal auditory canals are otherwise symmetric. Brainstem and skull base abnormalities are not seen. Post contrast images demonstrate no evidence of pathologic enhancement in the posterior cranial mukesh a or the internal auditory canals. There is no abnormal enhancement of the labyrinths. Fluid within the mastoid air cells. Globes are intact. Rightward nasal septal deviation. IMPRESSION: 1. Mild to moderate cerebral atrophy and moderate burden of chronic small vessel ischemic disease. 2. No acute intracranial abnormality seen. 3. There is fluid throughout the bilateral mastoid air cells. Correlate for any mastoid pain to exclu de mastoiditis. No other specific abnormality on acoustic MRI.
== END | disposition home or self-care (01) ==
LOC: RADMRIMAIN 13:25
PROVIDERS: ATTEND Otolaryngology
DX: G31.9 Degenerative disease of nervous system, unspecified (principal); I67.82 Cerebral ischemia; R42 Dizziness and giddiness
CPT/HCPCS: 70553; A9585

== ENCOUNTER → 2023-07-07 | Outpatient (CLI) | payer MEDICARE ==
--- NOTE | 2023-07-07 16:43 | MR ---
EXAMINATION TYPE: MR brain wo/w con DATE OF EXAM: 07/07/2023 COMPARISON: 02/11/2023 HISTORY: 77-year-old female G30.1, Dementia. TECHNIQUE: Multiplanar, multisequence images of the brain and brainstem were acquired before and aft er administration of 7 mL IV Gadavist. Diffusion weighted imaging is performed. FINDINGS: No evidence for acute infarction, hemorrhage, mass, mass effect, midline shift, herniation, effacemen t of basal cisterns, or extra-axial fluid collection. There is mild generalized central volume loss. No hydrocephalus. Major intracranial flow voids are intact. T2/FLAIR weighted sequences show prominent perivascular spaces in the bilateral basal ganglia. There are moderate scattered T2 bright white matter foci in the subcortical, deep, and periventricular whit e matter regions of both cerebral hemispheres. 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 Midline structures demonstrate normal morphology. The craniocervical junction is normal. Post contrast images demonstrate no evidence of pathologic enhancement. Dural venous sinuses are pat ent. Fluid within the bilateral mastoid air cells. Opacification of left sphenoid sinus and scattered mild mucosal thickening ethmoid air cells. Globes are intact. IMPRESSION: 1. Mild generalized atrophy and moderate scattered burden of chronic small vessel ischemic disease. 2. 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 No acute intracranial abnormality seen. No enhancing lesions. 3. Fluid within the bilateral mastoid air cells. Correlate for any mastoid pain to exclude mastoiditi s. 4. Additional fluid left sphenoid sinus may be seen with acute sinusitis.
== END | disposition home or self-care (01) ==
LOC: RADMRIMAIN 12:19
PROVIDERS: ATTEND Psychiatry & Neurology Neurology
DX: I67.82 Cerebral ischemia (principal); G30.1 Alzheimer's disease with late onset; G31.9 Degenerative disease of nervous system, unspecified; Z86.73 Personal history of transient ischemic attack (TIA), and cerebral infarction without residual deficits
CPT/HCPCS: 70553; A9585

== ENCOUNTER 2024-03-30 15:04 | Inpatient (IN) | payer MEDICARE ==
--- NOTE | 2024-03-30 15:19 | ED ---
General Adult HPI - General Stated complaint: SOB Time Seen by Provider: 03/30/24 15:06 Source: patient, family Mode of arrival: EMS Limitations: no limitations - History of Present Illness Initial comments: Patient is a 78-year-old woman who presents to have evaluation because she "feels awful." The patient states that she started feeling unwell yesterday in the morning and has continued through today. She has a difficult time describing symptoms exactly. She states that she feels shaky, her balance is off, she is having palpitations. The patient noted that she was having substernal chest pain yesterday in the afternoon but that resolved after a few hours. She states the pain was aching. She did not note associated symptoms. There has been no vomiting, dyspnea, syncope. The patient has had 3 episodes of diarrhea this morning no blood or tarry bowel movement. Patient denies change in urination. She has not noted fever or chills. The patient's son states that she has been having some cold-like symptoms for a week to 10 days. Onset/Timin -: days(s) Location: chest Quality: aching Consistency: now resolved Improves with: none Worsens with: none Associated Symptoms: other Treatments Prior to Arrival: none - Related Data Home Medications Medication Instructions Recorded Confirmed Aspirin [[place] Aspirin EC] 81 mg PO DAILY 06/25/21 03/30/24 Atorvastatin [Lipitor] 80 mg PO DAILY 06/25/21 03/30/24 Cholecalciferol [Vitamin D3 (25 25 mcg PO DAILY 06/25/21 03/30/24 Mcg = 1000 Iu)] Cyanocobalamin [Vitamin B-12] 500 mcg PO DAILY 06/25/21 03/30/24 hydroCHLOROthiazide [Hydrodiuril] 25 mg PO DAILY 06/25/21 03/30/24 Donepezil HCl [Aricept] 10 mg PO DAILY 03/30/24 03/30/24 Losartan [Cozaar] 50 mg PO DAILY 03/30/24 03/30/24 Omeprazole 20 mg PO DAILY 03/30/24 03/30/24 Potassium Chloride ER [K-Dur 10] 10 meq PO DAILY 03/30/24 03/30/24 Previous Rx's Medication Instructions Recorded Acetaminophen Tab [Tylenol] 650 mg PO Q6HR PRN tab 04/02/24 Oseltamivir [Tamiflu] 0 mg PO BID 3 Days #6 cap 04/02/24 Allergies Allergy/AdvReac Type Severity Reaction Status Date / Time No Known Allergies Allergy Verified 03/30/24 17:11 Review of Systems ROS Statement: Those systems with pertinent positive or pertinent negative responses have been documented in the HPI. ROS Other: All systems not noted in ROS Statement are negative. Constitutional: Reports: weakness. Denies: fever, chills Eyes: Denies: vision change ENT: Denies: ear pain, throat pain, congestion Respiratory: Denies: cough, dyspnea, wheezes Cardiovascular: Reports: as per HPI, chest pain, palpitations. Denies: orthopnea, edema, syncope Gastrointestinal: Reports: diarrhea. Denies: abdominal pain, nausea, vomiting, melena, hematochezia Genitourinary: Denies: dysuria, hematuria Musculoskeletal: Denies: back pain, myalgia Skin: Denies: rash Neurological: Denies: headache, weakness, numbness Psychiatric: Reports: anxiety Past Medical History Past Medical History: COPD, GERD/Reflux, Hyperlipidemia, Hypertension History of Any Multi-Drug Resistant Organisms: None Reported Past Surgical History: Section, Cholecystectomy Past Psychological History: No Psychological Hx Reported Smoking Status: Former smoker Past Alcohol Use History: None Reported Past Drug Use History: None Reported General Exam General appearance: alert, in no apparent distress, anxious Head exam: Present: atraumatic, normocephalic Eye exam: Present: normal appearance. Absent: scleral icterus, conjunctival injection ENT exam: Present: mucous membranes dry Neck exam: Present: normal inspection, full ROM. Absent: meningismus Respiratory exam: Present: normal lung sounds bilaterally. Absent: respiratory distress, wheezes, rales, rhonchi, stridor, accessory muscle use Cardiovascular Exam: Present: irregular rhythm. Absent: systolic murmur, diastolic murmur, rubs, gallop GI/Abdominal exam: Present: soft. Absent: distended, tenderness, guarding, rebound, rigid, mass, pulsatile mass Extremities exam: Present: normal inspection, normal capillary refill. Absent: pedal edema, calf tenderness Back exam: Present: normal inspection. Absent: CVA tenderness (R), CVA tenderness (L) Neurological exam: Present: alert, oriented X3. Absent: motor sensory deficit Skin exam: Present: warm, dry, intact, normal color. Absent: rash Course Vital Signs 03/30/24 03/30/24 03/30/24 15:57 17:04 18:16 Temperature 96.9 F L Pulse Rate 82 86 84 Pulse Rate [ Pulse Oximetery ] Respiratory 26 H 18 18 Rate Blood Pressure 118/56 117/67 114/70 Blood Pressure [Left Arm Supine] O2 Sat by Pulse 99 97 98 Oximetry 03/30/24 03/30/24 03/30/24 19:19 20:35 22:05 Temperature 98.2 F Pulse Rate 78 87 Pulse Rate [ 92 Pulse Oximetery ] Respiratory 18 18 20 Rate Blood Pressure 110/72 126/71 Blood Pressure 118/81 [Left Arm Supine] O2 Sat by Pulse 94 L 96 97 Oximetry 03/30/24 22:16 Temperature Pulse Rate 90 Pulse Rate [ Pulse Oximetery ] Respiratory 18 Rate Blood Pressure 137/65 Blood Pressure [Left Arm Supine] O2 Sat by Pulse 98 Oximetry EKG Findings - EKG Results: EKG: interpreted by ERMD, sinus rhythm (Rate 87 bpm), normal axis, normal ST/T - GA, Pacemaker, Normal: Myocardial infarction: septal GA (old age or indeterminate), anterior GA (old age or indeterminate) Medical Decision Making - Medical Decision Making Patient is 78-year-old woman here to be seen because she is not feeling well and did have episode of chest pain yesterday. Patient is found to have influenza A infection. The patient's troponin is mildly elevated and suspect that the episode of chest pain yesterday was acute coronary syndrome. Patient is admitted to have cardiology consultation. Patient will receive Tamiflu for influenza. The patient had chest x-ray that I interpreted as negative for acute infiltrate, pneumothorax, congestive heart failure Was pt. sent in by a medical professional or institution (, PA, VENEREAL DISEASE CONTROL HEAD, urgent care, hospital, or long term...) When possible be specific @ -[No] Did you speak to anyone other than the patient for history (EMS, parent, family, police, friend...)? What history was obtained from this source @ -[No] Did you review nursing and triage notes (agree or disagree)? Why? @ -[I reviewed and agree with nursing and triage notes] Were old charts reviewed (outside hosp., previous admission, EMS record, old EKG, old radiological studies, urgent care reports/EKG's, long term records)? Report findings @ -[No old charts were reviewed] Differential Diagnosis (chest pain, altered mental status, abdominal pain women, abdominal pain men, vaginal bleeding, weakness, fever, dyspnea, syncope, headache, dizziness, GI bleed, back pain, seizure, CVA, palpatations, mental health, musculoskeletal)? @ -[Differential Chest Pain: Stable Angina, Unstable Angina, STEMI, NSTEMI Aortic Dissection, Pneumothorax, Musculoskeletal, Esophageal Spasm GERD, Cholecystitis, Pancreatitis, Zoster, this is not meant to be an all-inclusive list. EKG interpreted by me (3pts min.). @ -[I interpreted as above] X-rays interpreted by me (1pt min.). @ -[I interpreted as above CT interpreted by me (1pt min.). @ -[None done] U/S interpreted by me (1pt. min.). @ -[None done] What testing was considered but not performed or refused? (CT, X-rays, U/S, labs)? Why? @ -[None] What meds were considered but not given or refused? Why? @ -[None] Did you discuss the management of the patient with other professionals (professionals i.e. , PA, V[facility]ERE[facility] DISEASE CONTROL HEAD, lab, RT, psych nurse, nursing home social worker, shoe stitcher, teacher, court collections officer, rifle case repairer)? Give summary @ -[No] Was smoking cessation discussed for >3mins.? @ -[No] Was critical care preformed (if so, how long)? @ -[No] Were there social determinants of health that impacted care today? How? (Homelessness, low income, unemployed, alcoholism, drug addiction, transportation, low edu. Level, literacy, decrease access to med. care, [facility], rehab)? @ -[No] Was there de-escalation of care discussed even if they declined (Discuss DNR or withdrawal of care, Hospice)? DNR status @ -[No] What co-morbidities impacted this encounter? (DM, HTN, Smoking, COPD, CAD, Cancer, CVA, ARF, Chemo, Hep., AIDS, mental health diagnosis, sleep apnea, morbid obesity)? @ -[None] Was patient admitted / discharged? Hospital course, mention meds given and route, prescriptions, significant lab abnormalities, going to OR and other pertinent info. @ -[See above Undiagnosed new problem with uncertain prognosis? @ -[No] Drug Therapy requiring intensive monitoring for toxicity (Heparin, Nitro, Insulin, Cardizem)? @ -[No] Were any procedures done? @ -[No] Diagnosis/symptom? @ -[Acute influenza A infection NSTEMI Acute, or Chronic, or Acute on Chronic? @ -[Acute Uncomplicated (without systemic symptoms) or Complicated (systemic symptoms)? @ -[default] Side effects of treatment? @ -[No] Exacerbation, Progression, or Severe Exacerbation? @ -[No] Poses a threat to life or bodily function? How? (Chest pain, USA, GA, pneumonia, PE, COPD, DKA, ARF, appy, cholecystitis, CVA, Diverticulitis, Homicidal, Suicidal, threat to staff... and all critical care pts) @ -[Yes All treatments are based on ideal body weight as in ED triage - Lab Data Result diagrams: 04/02/24 06:09 04/02/24 06:09 Lab Results 03/30/24 03/30/24 03/30/24 Range/Units 15:40 15:40 15:40 WBC 4.8 (3.8-10.6) k/uL RBC 4.91 (3.80-5.40) m/uL Hgb 15.2 (11.4-16.0) gm/dL Hct 44.6 (34.0-46.0) % MCV 91.0 (80.0-100.0) fL MCH 31.0 (25.0-35.0) pg MCHC 34.1 (31.0-37.0) g/dL RDW 12.9 (11.5-15.5) % Plt Count 130 L (150-450) k/uL MPV 9.3 Neutrophils % 51 % Lymphocytes % 34 % Monocytes % 11 % Eosinophils % 0 % Basophils % 0 % Neutrophils # 2.5 (1.3-7.7) k/uL Lymphocytes # 1.6 (1.0-4.8) k/uL Monocytes # 0.5 (0-1.0) k/uL Eosinophils # 0.0 (0-0.7) k/uL Basophils # 0.0 (0-0.2) k/uL PT 11.4 (10.0-12.5) sec INR 1.0 (<1.2) APTT 21.2 L (22.0-30.0) sec Sodium 134 L (137-145) mmol/L Potassium 4.2 (3.5-5.1) mmol/L Chloride 99 (98-107) mmol/L Carbon Dioxide 25 (22-30) mmol/L Anion Gap 10 mmol/L BUN 27 H (7-17) mg/dL Creatinine 0.93 (0.52-1.04) mg/dL Est GFR (CKD-EPI)AfAm 68 (>60 ml/min/1.73 sqM) Est GFR (CKD-EPI)NonAf 59 (>60 ml/min/1.73 sqM) Glucose 88 (74-99) mg/dL Calcium 8.4 (8.4-10.2) mg/dL Magnesium 1.5 L (1.6-2.3) mg/dL Total Bilirubin 1.3 (0.2-1.3) mg/dL AST 69 H (14-36) U/L ALT 26 (4-34) U/L Alkaline Phosphatase 46 (38-126) U/L Troponin I (0.000-0.034) ng/mL Total Protein 6.4 (6.3-8.2) g/dL Albumin 3.5 (3.5-5.0) g/dL TSH 3.180 (0.465-4.680) mIU/L Influenza Type A (PCR) (Not Detectd) Influenza Type B (PCR) (Not Detectd) RSV (PCR) (Not Detectd) SARS-CoV-2 (PCR) (Not Detectd) 03/30/24 03/30/24 Range/Units 15:40 15:40 WBC (3.8-10.6) k/uL RBC (3.80-5.40) m/uL Hgb (11.4-16.0) gm/dL Hct (34.0-46.0) % MCV (80.0-100.0) fL MCH (25.0-35.0) pg MCHC (31.0-37.0) g/dL RDW (11.5-15.5) % Plt Count (150-450) k/uL MPV Neutrophils % % Lymphocytes % % Monocytes % % Eosinophils % % Basophils % % Neutrophils # (1.3-7.7) k/uL Lymphocytes # (1.0-4.8) k/uL Monocytes # (0-1.0) k/uL Eosinophils # (0-0.7) k/uL Basophils # (0-0.2) k/uL PT (10.0-12.5) sec INR (<1.2) APTT (22.0-30.0) sec Sodium (137-145) mmol/L Potassium (3.5-5.1) mmol/L Chloride (98-107) mmol/L Carbon Dioxide (22-30) mmol/L Anion Gap mmol/L BUN (7-17) mg/dL Creatinine (0.52-1.04) mg/dL Est GFR (CKD-EPI)AfAm (>60 ml/min/1.73 sqM) Est GFR (CKD-EPI)NonAf (>60 ml/min/1.73 sqM) Glucose (74-99) mg/dL Calcium (8.4-10.2) mg/dL Magnesium (1.6-2.3) mg/dL Total Bilirubin (0.2-1.3) mg/dL AST (14-36) U/L ALT (4-34) U/L Alkaline Phosphatase (38-126) U/L Troponin I 0.142 H* (0.000-0.034) ng/mL Total Protein (6.3-8.2) g/dL Albumin (3.5-5.0) g/dL TSH (0.465-4.680) mIU/L Influenza Type A (PCR) Detected A (Not Detectd) Influenza Type B (PCR) Not Detected (Not Detectd) RSV (PCR) Not Detected (Not Detectd) SARS-CoV-2 (PCR) Not Detected (Not Detectd) Disposition Clinical Impression: NSTEMI (non-ST elevated myocardial infarction), Influenza A Disposition: ADMITTED IP TO THIS HOSP Condition: Fair Is patient prescribed a controlled substance at d/c from ED?: No
[2024-03-30 16:11] LABS: ALT 26 U/L (4-34); African American GFR (CKD) 68 (>60 ml/min/1.73 sqM); Anion Gap 10 mmol/L; Calcium 8.4 mg/dL (8.4-10.2); Carbon Dioxide 25 mmol/L (22-30); Chloride 99 mmol/L (98-107); Glucose 88 mg/dL (74-99); Magnesium 1.5 mg/dL (1.6-2.3); Non-African American GFR(CKD) 59 (>60 ml/min/1.73 sqM); Sodium 134 mmol/L (137-145); Total Bilirubin 1.3 mg/dL (0.2-1.3)
[2024-03-30 16:13] LABS: AST 69 U/L (14-36); Albumin 3.5 g/dL (3.5-5.0); Alkaline Phosphatase 46 U/L (38-126); Blood Urea Nitrogen 27 mg/dL (7-17); Potassium 4.2 mmol/L (3.5-5.1); Total Protein 6.4 g/dL (6.3-8.2)
[2024-03-30 16:14] LABS: Basophils % (A) 0 %; Eosinophils % (A) 0 %; HCT 44.6 % (34.0-46.0); HGB 15.2 gm/dL (11.4-16.0); Lymphocytes # (A) 1.6 k/uL (1.0-4.8); Lymphocytes % (A) 34 %; MCHC 34.1 g/dL (31.0-37.0); Mean Platelet Volume 9.3; Monocytes # (A) 0.5 k/uL (0-1.0); Monocytes % (A) 11 %; Neutrophils # (A) 2.5 k/uL (1.3-7.7); Neutrophils % (A) 51 %; Platelet Count 130 k/uL (150-450); RBC 4.91 m/uL (3.80-5.40); RDW 12.9 % (11.5-15.5); WBC 4.8 k/uL (3.8-10.6)
[2024-03-30] MEDS: ASPIRIN 81 MG PO STA (16:17)
--- NOTE | 2024-03-30 16:17 | XR ---
EXAMINATION TYPE: XR chest 2V DATE OF EXAM: 03/30/2024 3:59 PM COMPARISON: Prior chest x-ray June 30, 2021 CLINICAL INDICATION: Female, 78 years old with history of dysrhythmia, TECHNIQUE: Frontal and lateral views of the chest are obtained. FINDINGS: There is chronic parenchymal change bilaterally without suspicious focal air space opacity , pleural effusion, or pneumothorax seen. The cardiac silhouette size is within normal limits. Surgi connie change right shoulder is partially imaged similar to prior. IMPRESSION: Chronic changes without acute pulmonary process. [facility], , 03/30/2024 4:15 PM
[2024-03-30] MEDS: SODIUM CHLORIDE 0.9% 500 ML 500 ML IV STA (16:19)
[2024-03-30 16:26] LABS: Prothrombin Time 11.4 sec (10.0-12.5)
[2024-03-30 16:27] LABS: Partial Thromboplastin Time 21.2 sec (22.0-30.0)
[2024-03-30 16:36] LABS: Influenza A Detected (Not Detectd); Influenza B Not Detected (Not Detectd); RSV Not Detected (Not Detectd)
[2024-03-30] MEDS ORDERED: HEPARIN SODIUM 1,000 UN/ML (10ML VL) IV PRN (17:15)
[2024-03-30] MEDS ORDERED: NITROGLYCERIN SL TABS 0.4 MG TAB SUBLINGUAL PRN (17:24)
[2024-03-30] MEDS: HEPARIN SODIUM 1,000 UN/ML (10ML VL) IV ONE (18:09)
[2024-03-30] MEDS: HEPARIN SOD,PORK IN 0.45% NACL 25,000 UNIT in 0.45% NACL 1 250ML.BAG IV SCH (18:09)
[2024-03-31] MEDS: OSELTAMIVIR 75 MG CAP PO SCH (01:18)
[2024-03-31 08:29] LABS: Basophils % (A) 0 %; Eosinophils # (A) 0.1 k/uL (0-0.7); Eosinophils % (A) 1 %; HCT 42.6 % (34.0-46.0); HGB 14.4 gm/dL (11.4-16.0); Lymphocytes # (A) 2.2 k/uL (1.0-4.8); Lymphocytes % (A) 36 %; MCH 30.8 pg (25.0-35.0); MCHC 33.7 g/dL (31.0-37.0); MCV 91.2 fL (80.0-100.0); Mean Platelet Volume 9.2; Monocytes # (A) 0.4 k/uL (0-1.0); Monocytes % (A) 7 %; Neutrophils # (A) 3.3 k/uL (1.3-7.7); Neutrophils % (A) 54 %; Platelet Count 148 k/uL (150-450); RBC 4.67 m/uL (3.80-5.40); RDW 12.9 % (11.5-15.5); WBC 6.1 k/uL (3.8-10.6)
[2024-03-31 08:33] LABS: INR 1.1 (<1.2); Partial Thromboplastin Time 80.3 sec (22.0-30.0); Prothrombin Time 12.4 sec (10.0-12.5)
[2024-03-31] MEDS: PANTOPRAZOLE 40 MG TABLET PO SCH (10:01)
[2024-03-31] MEDS: LOSARTAN 50 MG TAB PO SCH (10:01)
[2024-03-31] MEDS: hydroCHLOROthiazide 25 MG TAB PO SCH (10:01)
[2024-03-31] MEDS: ATORVASTATIN 80 MG TAB PO SCH (10:01)
[2024-03-31] MEDS: CYANOCOBALAMIN 500 MCG TAB PO SCH (10:01)
[2024-03-31] MEDS: CHOLECALCIFEROL 25 MCG (1000 IU) TABLET PO SCH (10:01)
[2024-03-31] MEDS: ASPIRIN 325 MG TAB PO SCH (10:01)
[2024-03-31] MEDS: DONEPEZIL 10 MG TAB PO SCH (10:02)
[2024-03-31] MEDS ORDERED: ALBUTEROL NEBULIZED 2.5 MG/3 ML INHALATION PRN (12:12)
--- NOTE | 2024-03-31 14:13 | P.HPIM ---
History of Present Illness H&P Date: 03/31/24 Chief Complaint: Chest pain Patient is a 78 year old female with past medical history of COPD, GERD, hyperlipidemia, hypertension presented to the ED with shortness of breath and chest pain. Patient mentions the chest pain started 2-3 days ago. The pain is localized to the left side of the chest, without any radiation. She states the pain was mild and that she has not experienced a similar pain in the past. Denies IA or stents placed in the heart although she does mention having rheumatic fever in the past. Associated with that she endorses palpitations and abdominal pain. She also complains of shortness of breath and non productive cough. She has had the cold like symptoms for 7-10 days. She lives alone at home with her 2 cats. She states that it is difficult to cook for one person and that she has lost some weight recently. Denies fever, chills, nausea, vomiting, hematuria, dysuria, hematochezia, melena, headache, slurred speech, numbness, tingling, dizziness, lightheadedness. ED documentation reviewed. In the ED patient was treated with aspirin and 324 mg, heparin drip, nitroglycerin sublingual tablet, oseltamivir, 0.9 normal saline. Vitals on admission T 96.9 F, WA 82 bpm, RR 26, BP 118/56, oxygen saturation 99% on room air EKG independently interpreted as sinus rhythm with first-degree AV block, rate 87 bpm, QTc 464 ms Chest x-ray shows chronic changes without acute pulmonary process Labs on admission show WBC 4.8, platelet count 113, APTT 21.2, sodium 134, BUN 27, magnesium 1.5, AST 69, TSH 3.180 Troponin I 0.42, 0.169, 0.222 Respiratory panel is positive for influenza type A Review of systems: Pertinent positives and negatives as discussed in HPI, a complete review of systems was performed and all other systems are negative. Social history: Tobacco: Current everyday smoker Alcohol: Denies use Recreational drugs: Denies use Travel: No recent travel history Sick contacts: None Physical examination: Vital signs reviewed General: nontoxic, no distress, appears at stated age Derm: warm, dry, intact Head: atraumatic, normocephalic, symmetric Eyes: EOMI, anicteric sclera Mouth: no lip lesion, mucus membranes moist Cardiovascular: S1 S2 reg, no murmur Lungs: wheezing at the bases b/l Abdominal: soft, tender to palpation in the umbilical region Extremities: No cyanosis, clubbing, or pedal edema. Neuro: Alert, Oriented, Gross neurological examination did not reveal any focal deficits. Psych: well appearing, appropriate affect Assessment/Plan: Patient is a 78 year old female with past medical history of COPD, GERD, hyperlipidemia, hypertension presented to the ED with shortness of breath and chest pain. She is Influenza A positive. She has been admitted for further cardi ac workup. Active: #. Influenza A infection Continue albuterol 2.5 mg inhalation 4 times daily as needed Continue oseltamivir 30 mg p.o. every 12 hours, 8 doses Continue supplemental oxygen as needed, currently on room air #. Chest pain #. NSTEMI, likely type II Troponin I 0.42, 0.169, 0.222 EKG independently interpreted as sinus rhythm with first-degree AV block, rate 87 bpm, QTc 464 ms Continue aspirin 325 mg p.o. daily, atorvastatin 80 mg p.o. daily,, nitroglycerin 0.4 mg sublingual Q5M as needed heparin drip Obtain UA, lipid panel, PTT Continue telemetry monitoring Cardiology consulted #. Hypomagnesemia Magnesium sulfate 2 g #. Mild hyponatremia Na 134 Hold Hydrochlorthiazide Continue 0.9 normal saline at 40 ml/hr #. Thrombocytopenia Platelet count 130 Monitor CBC Chronic: #. Hypertension #. Hyperlipidemia #. GERD #. Cognitive decline Continue cholecalciferol 25 mg p.o. daily, cyanocobalamin 500 mcg p.o. daily, donepezil 10 mg p.o. daily, losartan 50 mg p.o. daily, pantoprazole 40 mg p.o. daily F: 0.9 normal saline at 40 mL/h E: Magnesium N: Heart healthy diet DVT prophylaxis: Heparin GI prophylaxis: Pantoprazole 40 mg p.o. daily The patient is admitted with an anticipated more than 2 midnight stay for evaluation of chest pain CODE STATUS: FULL CODE Discussed with: Patient Anticipated discharge place: Home Past Medical History Past Medical History: COPD, GERD/Reflux, Hyperlipidemia, Hypertension History of Any Multi-Drug Resistant Organisms: None Reported Past Surgical History: Section, Cholecystectomy Past Psychological History: No Psychological Hx Reported Smoking Status: Former smoker Past Alcohol Use History: None Reported Past Drug Use History: None Reported Medications and Allergies Home Medications Medication Instructions Recorded Confirmed Type Aspirin [[place] Aspirin EC] 81 mg PO DAILY 06/25/21 03/30/24 History Atorvastatin [Lipitor] 80 mg PO DAILY 06/25/21 03/30/24 History Cholecalciferol [Vitamin D3 (25 25 mcg PO DAILY 06/25/21 03/30/24 History Mcg = 1000 Iu)] Cyanocobalamin [Vitamin B-12] 500 mcg PO DAILY 06/25/21 03/30/24 History hydroCHLOROthiazide [Hydrodiuril] 25 mg PO DAILY 06/25/21 03/30/24 History Donepezil HCl [Aricept] 10 mg PO DAILY 03/30/24 03/30/24 History Losartan [Cozaar] 50 mg PO DAILY 03/30/24 03/30/24 History Omeprazole 20 mg PO DAILY 03/30/24 03/30/24 History Potassium Chloride ER [K-Dur 10] 10 meq PO DAILY 03/30/24 03/30/24 History atenoloL [Tenormin] 50 mg PO DAILY 03/30/24 03/30/24 History Allergies Allergy/AdvReac Type Severity Reaction Status Date / Time No Known Allergies Allergy Verified 03/30/24 17:11 Physical Exam Vitals: Vital Signs Temp Pulse Pulse Resp BP BP Pulse Ox 03/31/24 09:10 73 16 111/57 97 03/31/24 04:10 79 16 129/63 98 03/31/24 00:00 98.2 F 67 16 128/59 97 03/30/24 22:16 90 18 137/65 98 03/30/24 22:05 98.2 F 92 20 118/81 97 03/30/24 20:35 87 18 126/71 96 03/30/24 19:19 78 18 110/72 94 L 03/30/24 18:16 84 18 114/70 98 03/30/24 17:04 86 18 117/67 97 03/30/24 15:57 96.9 F L 82 26 H 118/56 99 Intake and Output 03/30/24 03/31/24 03/31/24 22:59 06:59 14:59 Intake Total 47.762 41.057 Balance 47.762 41.057 Intake: Intake, IV Titration 47.762 41.057 Amount Heparin Sod,Pork in 0.45% 47.762 41.057 NaCl 25,000 unit In 0.45 % NaCl 1 250ml.bag @ 12 UNITS/KG/HR 7.348 mls/hr IV .Q24H [facility] Rx#: [id number] Other: Voiding Method Toilet Toilet # Voids 1 Weight 61.235 kg 61.3 kg Results CBC & Chem 7: 03/31/24 07:50 03/30/24 15:40 Labs: Abnormal Lab Results - Last 24 Hours (Table) 03/30/24 03/30/24 03/30/24 Range/Units 15:40 15:40 15:40 Plt Count 130 L (150-450) k/uL APTT 21.2 L (22.0-30.0) sec Sodium 134 L (137-145) mmol/L BUN 27 H (7-17) mg/dL Magnesium 1.5 L (1.6-2.3) mg/dL AST 69 H (14-36) U/L Troponin I (0.000-0.034) ng/mL Influenza Type A (PCR) (Not Detectd) 03/30/24 03/30/24 03/30/24 Range/Units 15:40 15:40 18:28 Plt Count (150-450) k/uL APTT (22.0-30.0) sec Sodium (137-145) mmol/L BUN (7-17) mg/dL Magnesium (1.6-2.3) mg/dL AST (14-36) U/L Troponin I 0.142 H* 0.169 H* (0.000-0.034) ng/mL Influenza Type A (PCR) Detected A (Not Detectd) 03/30/24 03/30/24 03/31/24 Range/Units 23:35 23:40 07:50 Plt Count 148 L (150-450) k/uL APTT 124.7 H* (22.0-30.0) sec Sodium (137-145) mmol/L BUN (7-17) mg/dL Magnesium (1.6-2.3) mg/dL AST (14-36) U/L Troponin I 0.222 H* (0.000-0.034) ng/mL Influenza Type A (PCR) (Not Detectd) 03/31/24 Range/Units 07:50 Plt Count (150-450) k/uL APTT 80.3 H (22.0-30.0) sec Sodium (137-145) mmol/L BUN (7-17) mg/dL Magnesium (1.6-2.3) mg/dL AST (14-36) U/L Troponin I (0.000-0.034) ng/mL Influenza Type A (PCR) (Not Detectd) Thrombosis Risk Factor Assmnt - Choose All That Apply Any of the Below Risk Factors Present?: Yes Each Factor Represents 1 point: Abnormal pulmonary function (COPD) Other Risk Factors: Yes Each Risk Factor Represents 3 Points: Age 75 years or older Other congenital or acquired thrombophilia - If yes, enter type in comment: No Thrombosis Risk Factor Assessment Total Risk Factor Score: 4 Thrombosis Risk Factor Assessment Level: Moderate Risk
[2024-03-31] MEDS: SODIUM CHLORIDE 0.9% 1,000 ML IV SCH (14:14)
[2024-03-31] MEDS: MAGNESIUM SULFATE-D5W PMX 1 GM in DEXTROSE/WATER 1 100ML.BAG IVPB SCH (14:15)
[2024-03-31 15:11] LABS: LDL Cholesterol,Calculated 69.4 mg/dL (0.0-131.0); VLDL Calculation 16.14 mg/dL (5.00-40.00)
[2024-03-31] MEDS ORDERED: ASPIRIN 325 MG TAB PO STA (15:54)
[2024-03-31] MEDS ORDERED: ALPRAZolam 0.5 MG TAB PO PRN (15:54)
[2024-03-31] MEDS ORDERED: ALPRAZolam 0.25 MG TAB PO PRN (15:54)
[2024-03-31] MEDS ORDERED: NITROGLYCERIN SL TABS 0.4 MG TAB SUBLINGUAL PRN (15:54)
[2024-03-31] MEDS ORDERED: ATORVASTATIN 80 MG TAB PO STA (15:54)
--- NOTE | 2024-03-31 15:54 | CA ---
Transthoracic Echo Report Name: Sandie Vora Age: 78 Gender: F : 1945 Exam Date: 03/31/2024 13:23 Exam Location: [facility] Ht (in): 66 Wt (lb): 135 Ordering Physician: Germania Hoyt Attending/Referring Phys: Chicken Catcher Addis Sheffield RDCS Procedure CPT: Indications: elevated trop, SOB, murmur, +flu a Cardiac Hx: Technical Quality: Fair Contrast 1: Definity Total Dose (mL): 2 Contrast 2: Total Dose (mL): MEASUREMENTS (Male / Female) Normal Values 2D ECHO LV Diastolic Diameter PLAX 3.1 cm 4.2 - 5.9 / 3.9 - 5.3 cm LV Systolic Diameter PLAX 2.2 cm IVS Diastolic Thickness 1.2 cm 0.6 - 1.0 / 0.6 - 0.9 cm LVPW Diastolic Thickness 1.3 cm 0.6 - 1.0 / 0.6 - 0.9 cm LV Relative Wall Thickness 0.8 RV Internal Dim ED PLAX 2.6 cm LVOT Diameter 1.7 cm LA Volume 26.8 cm??? 18 - 58 / 22 - 52 cm??? LA Volume Index 15.8 cm???/m??? 16 - 28 cm???/m??? DOPPLER AV Peak Velocity 227.1 cm/s AV Peak Gradient 20.6 mmHg AV Mean Velocity 183.2 cm/s AV Mean Gradient 14.1 mmHg AV Velocity Time Integral 46.0 cm LVOT Peak Velocity 234.1 cm/s LVOT Peak Gradient 21.9 mmHg LVOT Velocity Time Integral 39.8 cm LVOT Stroke Volume 92.7 cm??? LVOT Stroke Volume Index 54.7 ml/m??? LVOT Cardiac Index 3948.4 cm???/min???m??? AV Area Cont Eq vti 2.0 cm??? AV Area Cont Eq pk 2.4 cm??? MV Area PHT 2.2 cm??? Mitral E Point Velocity 49.0 cm/s Mitral A Point Velocity 91.1 cm/s Mitral E to A Ratio 0.5 MV Deceleration Time 347.0 ms MV E' Velocity 3.4 cm/s Mitral E to MV E' Ratio 14.2 FINDINGS Left Ventricle Moderate concentric left ventricular hypertrophy with RAYMOND. Normal left ventricular systolic function with no obvious regional wall motion abnormalities. Left ventricular ejection fraction is estimated at 55-60 %. Grade 1 diastolic dysfunction. LVOT peak velocity 234 cm/s, LVOT peak Gradient 22mmHg. Right Ventricle Normal right ventricular size and function. Right ventricular systolic pressure within normal limits. Right Atrium Normal right atrial size. Left Atrium Normal left atrial size. Mitral Valve Structurally normal mitral valve. Mitral valve thickened. Mild mitral annular calcification. Mild mitral regurgitation. Aortic Valve Trileaflet aortic valve. Trace aortic regurgitation. A peak gradient of 20.6 mmHg and a mean gradient of 14 mmHg. Tricuspid Valve Structurally normal tricuspid valve. Mild tricuspid regurgitation. Pulmonic Valve Structurally normal pulmonic valve. Pericardium No pericardial effusion. Aorta Normal size aortic root and proximal ascending aorta. CONCLUSIONS Left ventricular ejection fraction 55-60% Moderate concentric increased left ventricular wall thickness with RAYMOND Mild mitral regurgitation Trace aortic regurgitation Mild tricuspid regurgitation No pericardial effusion Previewed by: Dr. Austin Redman DO (Electronically Signed) Final Date: 31 March 2024 15:53
--- NOTE | 2024-03-31 15:57 | P.CRDCN ---
History of Present Illness Consult date: 03/31/24 History of present illness: History of present illness: Patient is a pleasant 78-year-old female with significant past medical history of COPD, GERD, tobacco abuse, history of rheumatic fever as a child, hypertension, and hyperlipidemia who presented to the ER just not feeling well. 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 She denies any significant family history of heart disease, her sister did have ALS. She does smoke, denies alcohol or drug use. She was having vague symptoms including feeling shaky, balance off, palpitations. She did have episode of substernal chest pain however this resolved after a few hours, she denies any associated symptoms. Patient's son reported that patient had been having cold-like symptoms for the past 7 to 10 days. She was positive for influenza A. Troponins were elevated 0.142, 0.169, 0.222. She was started on heparin drip. She is not having any chest pain currently. She does have shortness of breath and cough. She denies having any prior heart workup. REVIEW OF SYSTEMS: No fever or chills. Reports shortness of breath and cough. No diaphoresis. Patient denies headache, dizziness, blurred vision, double vis ion. Patient denies any stomach discomfort. No nausea, vomiting. No hematochezia. No hematemesis. Denies any black stools or blood in his stools. Denies dysuria or hematuria. No muscle weakness or numbness. No chest pain or pressure. Reports balance off. Reports palpitations. PHYSICAL EXAMINATION: This is a 78-year-old female in no apparent distress at the time of my examination. HEENT: Head is atraumatic, normocephalic. Pupils are equal, round. Sclerae anicteric. Conjunctivae are clear. Mucous membranes of the mouth are moist. Neck is supple. There is no jugular venous distention. No carotid bruit is heard. CHEST EXAMINATION: Lungs rhonchi at bilateral bases. No chest wall tenderness is noted on palpation or with deep breathing. HEART EXAMINATION: Heart regular rate and rhythm. S1, S2 heard. 2/6 systolic murmur. No gallops or rub. ABDOMEN: Soft, nontender. Bowel sounds are heard. EXTREMITIES: 2+ peripheral pulses with no evidence of peripheral edema and no calf tenderness noted. NEUROLOGIC EXAMINATION: Patient is awake, alert and oriented x3. IMPRESSION AND PLAN: NSTEMI Influenza A positive Chest pain Hypertension Hyperlipidemia Tobacco abuse History of rheumatic fever Heart murmur PLAN: We will echocardiogram to evaluate heart structure and function. We will check left heart catheterization to rule out blockage tomorrow 04/01, risks and benefits were discussed with patient and she agrees to proceed. N.p.o. after midnight. Continue with current regimen at this time. Further recommendations pending clinical course. I am dictating on behalf of Dr. Austin Redman's history/physical and assessment/plan. Past Medical History Past Medical History: COPD, GERD/Reflux, Hyperlipidemia, Hypertension History of Any Multi-Drug Resistant Organisms: None Reported Past Surgical History: Section, Cholecystectomy Past Psychological History: No Psychological Hx Reported Smoking Status: Former smoker Past Alcohol Use History: None Reported Past Drug Use History: None Reported Medications and Allergies Home Medications Medication Instructions Recorded Confirmed Type Aspirin [[facility] Aspirin EC] 81 mg PO DAILY 06/25/21 03/30/24 History Atorvastatin [Lipitor] 80 mg PO DAILY 06/25/21 03/30/24 History Cholecalciferol [Vitamin D3 (25 25 mcg PO DAILY 06/25/21 03/30/24 History Mcg = 1000 Iu)] Cyanocobalamin [Vitamin B-12] 500 mcg PO DAILY 06/25/21 03/30/24 History hydroCHLOROthiazide [Hydrodiuril] 25 mg PO DAILY 06/25/21 03/30/24 History Donepezil HCl [Aricept] 10 mg PO DAILY 03/30/24 03/30/24 History Losartan [Cozaar] 50 mg PO DAILY 03/30/24 03/30/24 History Omeprazole 20 mg PO DAILY 03/30/24 03/30/24 History Potassium Chloride ER [K-Dur 10] 10 meq PO DAILY 03/30/24 03/30/24 History atenoloL [Tenormin] 50 mg PO DAILY 03/30/24 03/30/24 History Allergies Allergy/AdvReac Type Severity Reaction Status Date / Time No Known Allergies Allergy Verified 03/30/24 17:11 Physical Exam Vitals: Vital Signs Temp Pulse Pulse Resp BP BP Pulse Ox 03/31/24 09:10 73 16 111/57 97 03/31/24 04:10 79 16 129/63 98 03/31/24 00:00 98.2 F 67 16 128/59 97 03/30/24 22:16 90 18 137/65 98 03/30/24 22:05 98.2 F 92 20 118/81 97 03/30/24 20:35 87 18 126/71 96 03/30/24 19:19 78 18 110/72 94 L 03/30/24 18:16 84 18 114/70 98 03/30/24 17:04 86 18 117/67 97 03/30/24 15:57 96.9 F L 82 26 H 118/56 99 Intake and Output 03/30/24 03/31/24 03/31/24 22:59 06:59 14:59 Intake Total 47.762 41.057 Balance 47.762 41.057 Intake: Intake, IV Titration 47.762 41.057 Amount Heparin Sod,Pork in 0.45% 47.762 41.057 NaCl 25,000 unit In 0.45 % NaCl 1 250ml.bag @ 12 UNITS/KG/HR 7.348 mls/hr IV .Q24H [facility] Rx#: [id number] Other: Voiding Method Toilet Toilet Toilet # Voids 1 Weight 61.235 kg 61.3 kg Results 03/31/24 07:50 03/30/24 15:40 Cardiac Enzymes 03/30/24 03/30/24 03/30/24 Range/Units 15:40 15:40 18:28 AST 69 H (14-36) U/L Troponin I 0.142 H* 0.169 H* (0.000-0.034) ng/mL 03/30/24 Range/Units 23:40 AST (14-36) U/L Troponin I 0.222 H* (0.000-0.034) ng/mL Coagulation 03/30/24 03/30/24 03/31/24 Range/Units 15:40 23:35 07:50 PT 11.4 12.4 (10.0-12.5) sec APTT 21.2 L 124.7 H* 80.3 H (22.0-30.0) sec CBC 03/30/24 03/31/24 Range/Units 15:40 07:50 WBC 4.8 6.1 (3.8-10.6) k/uL RBC 4.91 4.67 (3.80-5.40) m/uL Hgb 15.2 14.4 (11.4-16.0) gm/dL Hct 44.6 42.6 (34.0-46.0) % Plt Count 130 L 148 L (150-450) k/uL Comprehensive Metabolic Panel 03/30/24 Range/Units 15:40 Sodium 134 L (137-145) mmol/L Potassium 4.2 (3.5-5.1) mmol/L Chloride 99 (98-107) mmol/L Carbon Dioxide 25 (22-30) mmol/L BUN 27 H (7-17) mg/dL Creatinine 0.93 (0.52-1.04) mg/dL Glucose 88 (74-99) mg/dL Calcium 8.4 (8.4-10.2) mg/dL AST 69 H (14-36) U/L ALT 26 (4-34) U/L Alkaline Phosphatase 46 (38-126) U/L Total Protein 6.4 (6.3-8.2) g/dL Albumin 3.5 (3.5-5.0) g/dL Current Medications Generic Name Dose Route Start Last Admin Trade Name Freq PRN Reason Stop Dose Admin Aspirin 325 mg 03/31/24 09:00 03/31/24 10:01 Aspirin 325 Mg Tab PO 325 mg DAILY [facility] Administration Atorvastatin Calcium 80 mg 03/31/24 09:00 03/31/24 10:01 Atorvastatin 80 Mg Tab PO 80 mg DAILY ROX Administration Cholecalciferol 25 mcg 03/31/24 09:00 03/31/24 10:01 Cholecalciferol 25 Mcg (1000 Iu) Tablet PO 25 mcg DAILY ROX Administration Cyanocobalamin 500 mcg 03/31/24 09:00 03/31/24 10:01 Cyanocobalamin 500 Mcg Tab PO 500 mcg DAILY ROX Administration Donepezil HCl 10 mg 03/31/24 09:00 03/31/24 10:02 Donepezil 10 Mg Tab PO 10 mg DAILY ROX Administration Heparin Sodium (Porcine) 0 unit 03/30/24 17:15 Heparin Sodium 1,000 Un/Ml (10ml Vl) IV PER PROTOCOL PRN Low PTT Protocol Hydrochlorothiazide 25 mg 03/31/24 09:00 03/31/24 10:01 Hydrochlorothiazide 25 Mg Tab PO 25 mg DAILY ROX Administration Heparin Sodium/Sodium Chloride 250 mls @ 7.348 mls/hr 03/30/24 17:15 03/31/24 09:08 25,000 unit/ Sodium Chloride IV 7 units/kg/hr .Q24H [facility] 4.286 mls/hr Titration Protocol 12 UNITS/KG/HR Losartan Potassium 50 mg 03/31/24 09:00 03/31/24 10:01 Losartan 50 Mg Tab PO 50 mg DAILY ROX Administration Nitroglycerin 0.4 mg 03/30/24 17:24 Nitroglycerin Sl Tabs 0.4 Mg Tab SUBLINGUAL Q5M PRN Chest Pain Oseltamivir Phosphate 75 mg 03/31/24 00:30 03/31/24 10:01 Oseltamivir 75 Mg Cap PO 04/04/24 09:01 75 mg Q12HR ROX Administration Protocol Pantoprazole Sodium 40 mg 03/31/24 09:00 03/31/24 10:01 Pantoprazole 40 Mg Tablet PO 40 mg DAILY ROX Administration Intake and Output 03/30/24 03/31/24 03/31/24 22:59 06:59 14:59 Intake Total 47.762 41.057 Balance 47.762 41.057 Intake: Intake, IV Titration 47.762 41.057 Amount Heparin Sod,Pork in 0.45% 47.762 41.057 NaCl 25,000 unit In 0.45 % NaCl 1 250ml.bag @ 12 UNITS/KG/HR 7.348 mls/hr IV .Q24H [facility] Rx#: [id number] Other: Voiding Method Toilet Toilet Toilet # Voids 1 Weight 61.235 kg 61.3 kg 03/31/24 07:50 03/30/24 15:40
[2024-03-31] MEDS: OSELTAMIVIR 30 MG CAP PO SCH (20:48)
[2024-04-01] MEDS: ASPIRIN 325 MG TAB PO ONE (06:30)
[2024-04-01] MEDS: ATORVASTATIN 80 MG TAB PO ONE (06:30)
[2024-04-01 06:33] LABS: HCT 37.9 % (34.0-46.0); HGB 12.8 gm/dL (11.4-16.0); MCH 30.6 pg (25.0-35.0); MCHC 33.8 g/dL (31.0-37.0); MCV 90.5 fL (80.0-100.0); Mean Platelet Volume 9.3; Platelet Count 130 k/uL (150-450); RBC 4.19 m/uL (3.80-5.40); RDW 12.7 % (11.5-15.5); WBC 5.4 k/uL (3.8-10.6)
[2024-04-01 06:43] LABS: African American GFR (CKD) 76 (>60 ml/min/1.73 sqM); Anion Gap 5 mmol/L; Blood Urea Nitrogen 16 mg/dL (7-17); Calcium 8.3 mg/dL (8.4-10.2); Carbon Dioxide 25 mmol/L (22-30); Chloride 102 mmol/L (98-107); Glucose 82 mg/dL (74-99); Non-African American GFR(CKD) 66 (>60 ml/min/1.73 sqM); Sodium 132 mmol/L (137-145)
[2024-04-01 06:49] LABS: Potassium 2.7 mmol/L (3.5-5.1)
[2024-04-01] MEDS: POTASSIUM CHLORIDE ER 20 MEQ TAB.ER PO SCH (08:09)
[2024-04-01] MEDS: ACETAMINOPHEN TAB 325 MG TAB PO PRN (08:09)
[2024-04-01] MEDS: MIDAZOLAM 2 MG/2 ML VIAL IVP ONE (10:40)
[2024-04-01] MEDS: IV FLUID CONTINUATION 1,000 ML IV ONE (10:40)
[2024-04-01] MEDS: fentaNYL (PF) 50 MCG/1 ML VIAL IVP ONE (10:40)
[2024-04-01] MEDS: HEPARIN SODIUM,PORCINE (1 ML) 2,500 UNIT in SODIUM CHLORIDE 0.9% 250 ML IRRIGATION PRN (10:41)
[2024-04-01] MEDS: HEPARIN SODIUM,PORCINE 10,000 UNIT in SODIUM CHLORIDE 0.9% 1,000 ML IRRIGATION PRN (10:41)
[2024-04-01] MEDS: LIDOCAINE 1% INJ 10MG/ML (10 ML MDV) SQ ONE (10:46)
[2024-04-01] MEDS: VERAPAMIL SYRINGE (5 MG/10 ML) INTRAARTER ONE (10:48)
[2024-04-01] MEDS: HEPARIN SODIUM 1,000 UN/ML (10ML VL) IV ONE (10:49)
[2024-04-01] MEDS: IOPAMIDOL-370 100ML BTL INJ ONE (10:56)
--- NOTE | 2024-04-01 11:13 | P.CARDCATH ---
Description of Procedure: PROCEDURES PERFORMED: Left heart catheterization, bilateral coronary angiography, ultrasound guided arterial access INDICATION: NSTEMI CONSENT:I have discussed the risks, benefits and alternative therapies for the above-mentioned procedure and for both sedation/analgesia as well as necessary blood product administration, if indicated, as they pertain to this patient. The patient has indicated understanding and acceptance of the risks and procedures discussed. PROCEDURE: After the risks, benefits and alternatives of the above mentioned procedure explained in detail with the patient, informed consent was obtained. Patient was taken to the catheterization lab and prepped and draped in usual fashion. Ultrasound guidance was used to assess for arterial access. 1% lidocaine was used to anesthetize the right radial artery. A 6-Kosovan sheath was placed in the right radial artery using modified Seldinger technique and ultrasound guidance. Left coronary angiography was performed with a 5-Kosovan JL 3.5 catheter and right coronary angiography was performed with a 5-Kosovan FR5 catheter in various views. A 5-Kosovan FR5 catheter was inserted into the left ventricle and pressure measurements were obtained. The right radial sheath was removed and a TR band was placed with hemostasis achieved. The patient tolerated the procedure well. Patient was transported back to the post catheterization holding area in stable condition. Conscious Sedation: Patient was monitored under the direct supervision of myself for conscious sedation using Versed and fentanyl for a total duration of 12 minutes HEMODYNAMICS: Ao:128/74 LV: 132/4, lvedp 12 SELECTIVE CORONARY ARTERIOGRAPHY: LEFT MAIN: The left main is a large caliber vessel which bifurcates into the LAD and circumflex. There is no significant stenosis. LEFT ANTERIOR DESCENDING CORONARY ARTERY: LAD is a large caliber vessel which wraps around to the apex. There is mild 10-20% calcified mid LAD stenosis. LEFT CIRCUMFLEX CORONARY ARTERY: Left circumflex is a moderate caliber vessel without significant stenosis. RIGHT CORONARY ARTERY: The right coronary artery is a large caliber vessel which gives off a PDA and PLV branch and is the dominant vessel. There are mild luminal irregularities stenosis. FINAL IMPRESSION: 1. Mild 10-20% LAD and RCA stenosis and otherwise normal coronary arteries 2. Normal left sided filling pressures PLAN: 1. Aggressive risk factor modification per most recent ACC/AHA guidelines. 2. Follow-up in the office in 1-2 weeks.
[2024-04-01] MEDS: [UNRECOGNIZED DRUG - MIXTURE] PO ONE (12:29)
[2024-04-02 06:34] LABS: HCT 39.2 % (34.0-46.0); HGB 12.8 gm/dL (11.4-16.0); MCHC 32.7 g/dL (31.0-37.0); MCV 91.6 fL (80.0-100.0); Mean Platelet Volume 8.7; Platelet Count 139 k/uL (150-450); RBC 4.28 m/uL (3.80-5.40); RDW 12.8 % (11.5-15.5); WBC 5.4 k/uL (3.8-10.6)
[2024-04-02 06:43] LABS: African American GFR (CKD) 69 (>60 ml/min/1.73 sqM); Anion Gap 3 mmol/L; Blood Urea Nitrogen 15 mg/dL (7-17); Calcium 8.3 mg/dL (8.4-10.2); Carbon Dioxide 26 mmol/L (22-30); Chloride 106 mmol/L (98-107); Glucose 74 mg/dL (74-99); Non-African American GFR(CKD) 60 (>60 ml/min/1.73 sqM); Potassium 3.2 mmol/L (3.5-5.1); Sodium 135 mmol/L (137-145)
[2024-04-02 09:15] VITALS: RESP 14
[2024-04-02 12:13] VITALS: BMI 20.6
--- NOTE | 2024-04-02 14:09 | P.PN ---
Subjective Progress Note Date: 04/02/24 History of present illness: Patient is a pleasant 78-year-old female with significant past medical history of COPD, GERD, tobacco abuse, history of rheumatic fever as a child, hypertension, and hyperlipidemia who presented to the ER just not feeling well. 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 She denies any significant family history of heart disease, her sister did have ALS. She does smoke, denies alcohol or drug use. She was having vague symptoms including feeling shaky, balance off, palpitations. She did have episode of substernal chest pain however this resolved after a few hours, she denies any associated symptoms. Patient's son reported that patient had been having cold-like symptoms for the past 7 to 10 days. She was positive for influenza A. Troponins were elevated 0.142, 0.169, 0.222. She was started on heparin drip. She is not having any chest pain currently. She does have shortness of breath and cough. She denies having any prior heart workup. 04/02/2024 Yesterday, patient underwent cardiac catheterization with Dr. Redman which revealed mild 10 to 20% LAD and RCA stenosis and otherwise normal coronary arteries. Plan for aggressive risk factor modification and follow-up in the office in 1 to 2 weeks. Echocardiogram reveals EF 55 to 60%, moderate concentric increased left ventricular wall thickness with RAYMOND, mild MR, trace AR, mild TR. Patient denies chest pain, shortness of breath. Right wrist shows no signs of hematoma, bleeding, tenderness. PHYSICAL EXAMINATION: This is a 78-year-old female in no apparent distress at the time of my examination. HEENT: Head is atraumatic, normocephalic. Pupils are equal, round. Sclerae anicteric. Conjunctivae are clear. Mucous membranes of the mouth are moist. Neck is supple. There is no jugular venous distention. No carotid bruit is heard. CHEST EXAMINATION: Lungs rhonchi at bilateral bases. No chest wall tenderness is noted on palpation or with deep breathing. HEART EXAMINATION: Heart regular rate and rhythm. S1, S2 heard. 2/6 systolic murmur. No gallops or rub. ABDOMEN: Soft, nontender. Bowel sounds are heard. EXTREMITIES: 2+ peripheral pulses with no evidence of peripheral edema and no calf tenderness noted. NEUROLOGIC EXAMINATION: Patient is awake, alert and oriented x3. IMPRESSION AND PLAN: NSTEMI Influenza A positive Chest pain Hypertension Hyperlipidemia Tobacco abuse History of rheumatic fever Heart murmur PLAN: Continue with current regimen at this time. Patient is cleared for discharge and will follow-up with Dr. Redman in 1 week Cardiology will sign off this case and follow on an as-needed basis. Please reconsult for any new concerns. Patient may follow-up in the office in one to 2 weeks. Nurse practitioner note has been reviewed, I agree with documented findings and plan of care. Patient was seen and examined. Objective - Vital Signs Vital signs: Vital Signs Temp 97.5 F L 04/02/24 11:10 Pulse 55 L 04/02/24 11:10 Resp 14 04/02/24 11:10 BP 138/66 04/02/24 11:10 Pulse Ox 98 04/02/24 11:10 FiO2 Intake & Output 04/01/24 04/02/24 04/02/24 18:59 06:59 18:59 Intake Total 422 Balance 422 Weight 58 kg 58 kg Intake: IV 200 Oral 222 Other: Voiding Method Toilet Toilet Toilet # Voids 2 - Labs CBC & Chem 7: 04/02/24 06:09 04/02/24 06:09 Labs: Abnormal Lab Results - Last 24 Hours (Table) 04/02/24 04/02/24 Range/Units 06:09 06:09 Plt Count 139 L (150-450) k/uL Sodium 135 L (137-145) mmol/L Potassium 3.2 L (3.5-5.1) mmol/L Calcium 8.3 L (8.4-10.2) mg/dL
[2024-04-02] MEDS ORDERED: Potassium Replacement Protocol 1 EACH MISC MISCELLANE PRN (14:40)
[2024-04-02] MEDS: POTASSIUM CHLORIDE ER 20 MEQ TAB.ER PO SCH (14:46)
[2024-04-02 16:35] VITALS: BP 139/63; PULSE 63; TEMP 97.8
--- NOTE | 2024-04-02 16:47 | P.PN ---
Subjective Patient is a 78 year old female with past medical history of COPD, GERD, hyperlipidemia, hypertension presented to the ED with shortness of breath and chest pain. Patient mentions the chest pain started 2-3 days ago. The pain is localized to the left side of the chest, without any radiation. She states the pain was mild and that she has not experienced a similar pain in the past. Denies GA or stents placed in the heart although she does mention having rheumatic fever in the past. Associated with that she endorses palpitations and abdominal pain. She also complains of shortness of breath and non productive cough. She has had the cold like symptoms for 7-10 days. She lives alone at home with her 2 cats. She states that it is difficult to cook for one person and that she has lost some weight recently. Denies fever, chills, nausea, vomiting, hematuria, dysuria, hematochezia, melena, headache, slurred speech, numbness, tingling, dizziness, lightheadedness. ED documentation reviewed. In the ED patient was treated with aspirin and 324 mg, heparin drip, nitroglycerin sublingual tablet, oseltamivir, 0.9 normal saline. Vitals on admission T 96.9 F, NC 82 bpm, RR 26, BP 118/56, oxygen saturation 99% on room air EKG independently interpreted as sinus rhythm with first-degree AV block, rate 87 bpm, QTc 464 ms Chest x-ray shows chronic changes without acute pulmonary process Labs on admission show WBC 4.8, platelet count 113, APTT 21.2, sodium 134, BUN 27, magnesium 1.5, AST 69, TSH 3.180 Troponin I 0.42, 0.169, 0.222 Respiratory panel is positive for influenza type 1/12 this is a pleasant 78 yr old lady who presents with Who presents because of dyspnea of 1 to 2 days duration and found to have irregular heartbeat secondary to A-fib and RVR the patient. Patient with no chest pain but however troponin were found elevated 0.14, 0.16 and 0.22. Echocardiogram showed ejection fraction 55 to 60% with moderate LVH Chest x-ray showing chronic changes without acute process. pt is going for cardiac catheterization today Objective - Vital Signs Vital signs: Vital Signs Temp 97.8 F 04/01/24 15:33 Pulse 64 04/01/24 15:33 Resp 16 04/01/24 15:33 BP 104/64 04/01/24 15:33 Pulse Ox 98 04/01/24 15:33 FiO2 Intake & Output 03/31/24 04/01/24 04/01/24 18:59 06:59 18:59 Intake Total 159.057 422 Balance 159.057 422 Weight 61.3 kg 56.5 kg Intake: IV 200 Intake, IV Titration 41.057 Amount Heparin Sod,Pork in 0.45% 41.057 NaCl 25,000 unit In 0.45 % NaCl 1 250ml.bag @ 12 UNITS/KG/HR 7.348 mls/hr IV .Q24H [facility] Rx#: [id number] Oral 118 222 Other: Voiding Method Toilet Toilet Toilet # Voids 3 1 - Exam GENERAL: The patient is alert and oriented x3, not in any acute distress. Well developed, well nourished. HEENT: Pupils are round and equally reacting to light. EOMI. No scleral icterus. No conjunctival pallor. Normocephalic, atraumatic. No pharyngeal erythema. No thyromegaly. CARDIOVASCULAR: S1 and S2 present. No murmurs, rubs, or gallops. PULMONARY: Chest is clear to auscultation, no wheezing , no crackles. ABDOMEN: Soft, nontender, nondistended, normoactive bowel sounds. No palpable organomegaly. MUSCULOSKELETAL: No joint swelling or deformity. EXTREMITIES: No cyanosis, clubbing, or pedal edema. NEUROLOGICAL: Gross neurological examination did not reveal any focal deficits. SKIN: No rashes. no petechiae. - Labs CBC & Chem 7: 04/02/24 06:09 04/02/24 06:09 Labs: Abnormal Lab Results - Last 24 Hours (Table) 03/31/24 04/01/24 04/01/24 Range/Units 22:00 05:36 05:36 Plt Count 130 L (150-450) k/uL APTT 54.8 H (22.0-30.0) sec Sodium 132 L (137-145) mmol/L Potassium 2.7 L* (3.5-5.1) mmol/L Calcium 8.3 L (8.4-10.2) mg/dL 04/01/24 Range/Units 05:36 Plt Count (150-450) k/uL APTT 48.3 H (22.0-30.0) sec Sodium (137-145) mmol/L Potassium (3.5-5.1) mmol/L Calcium (8.4-10.2) mg/dL Assessment and Plan Assessment: Active: #. Influenza A infection Continue albuterol 2.5 mg inhalation 4 times daily as needed Continue oseltamivir 30 mg p.o. every 12 hours, 8 doses Continue supplemental oxygen as needed, currently on room air #. Chest pain #. NSTEMI, likely type II Troponin I 0.42, 0.169, 0.222 EKG independently interpreted as sinus rhythm with first-degree AV block, rate 87 bpm, QTc 464 ms Continue aspirin 325 mg p.o. daily, atorvastatin 80 mg p.o. daily,, nitroglyce rin 0.4 mg sublingual Q5M as needed heparin drip Obtain UA, lipid panel, PTT Continue telemetry monitoring Cardiology consulted -Cardiac cath on 04/01: Pending #. Hypomagnesemia Magnesium sulfate 2 g #. Mild hyponatremia Na 134 Hold Hydrochlorthiazide Continue 0.9 normal saline at 40 ml/hr #. Thrombocytopenia Platelet count 130 Monitor CBC Chronic: #. Hypertension #. Hyperlipidemia #. GERD #. Cognitive decline Continue cholecalciferol 25 mg p.o. daily, cyanocobalamin 500 mcg p.o. daily, donepezil 10 mg p.o. daily, losartan 50 mg p.o. daily, pantoprazole 40 mg p.o. daily F: 0.9 normal saline at 40 mL/h E: Magnesium N: Heart healthy diet DVT prophylaxis: Heparin GI prophylaxis: Pantoprazole 40 mg p.o. daily The patient is admitted with an anticipated more than 2 midnight stay for eval uation of chest pain CODE STATUS: FULL CODE Discussed with: Patient Anticipated discharge place: Home
--- NOTE | 2024-04-05 11:21 | P.DS ---
Providers Date of admission: 03/30/24 17:26 Expected date of discharge: 04/02/24 Attending physician: Mitch Sahu MD Consults: 03/30/24 17:26 Consult Physician Routine Consulting Provider: Danyel Leigh Consult Reason/Comments: NSTEMI Do you want consulting provider notified?: Yes Primary care physician: Mitch Sahu MD Hospital Course: Final diagnosis Influenza A infection Ruled out ACS chest pain NSTEMI, type II influenza A Hypomagnesemia, improved after replacement Mild hyponatremia Thrombocytopenia Hypertension Hyperlipidemia GERD Cognitive decline GI prophylaxis DVT prophylaxis Full code Discharge disposition Patient is being discharged in a stable condition with guarded prognosis to home. Patient will follow-up with Dr. Sahu in the outpatient setting upon discharge. Patient is to continue with current medications and outpatient follow-up as scheduled. Patient to continue on Tamiflu on discharge. Total time taken is greater than 35 minutes. Hospital course Patient is a 78 year old female with past medical history of COPD, GERD, hyperlipidemia, hypertension presented to the ED with shortness of breath and chest pain. Patient mentions the chest pain started 2-3 days ago. The pain is localized to the left side of the chest, without any radiation. She states the pain was mild and that she has not experienced a similar pain in the past. Denie s [place] or stents placed in the heart although she does mention having rheumatic fever in the past. Associated with that she endorses palpitations and abdominal pain. She also complains of shortness of breath and non productive cough. She has had the cold like symptoms for 7-10 days. She lives alone at home with her 2 cats. She states that it is difficult to cook for one person and that she has lost some weight recently. Denies fever, chills, nausea, vomiting, hematuria, dysuria, hematochezia, melena, headache, slurred speech, numbness, tingling, dizziness, lightheadedness. ED documentation reviewed. In the ED patient was treated with aspirin and 324 mg, heparin drip, nitroglycerin sublingual tablet, oseltamivir, 0.9 normal saline. Vitals on admission T 96.9 F, CT 82 bpm, RR 26, BP 118/56, oxygen saturation 99% on room air EKG independently interpreted as sinus rhythm with first-degree AV block, rate 87 bpm, QTc 464 ms Chest x-ray shows chronic changes without acute pulmonary process Labs on admission show WBC 4.8, platelet count 113, APTT 21.2, sodium 134, BUN 27, magnesium 1.5, AST 69, TSH 3.180 Troponin I 0.42, 0.169, 0.222 Respiratory panel is positive for influenza type A Patient has been cleared by consultations and will be currently no reports of chest pain, shortness of breath, or palpitations. Patient is afebrile. No reports of nausea or vomiting and patient is tolerating diet. Discharged home today. Patient instructed to follow-up with primary care provider within the next week. Continue Tamiflu on discharge to complete the course. Please refer to other consultation notes for further HPI. Physical exam: Gen: This is a 78-year-old female who is awake, alert and oriented x 3, thin built, elderly appearing HEENT: Head is atraumatic, normocephalic. Pupils equal, round. Sclerae is anicteric. NECK: Supple. No JVD. No lymphadenopathy. No thyromegaly. LUNGS: Diminished breath sounds bilaterally otherwise clear to auscultation. No wheezes or rhonchi. No intercostal retractions. HEART: Regular rate and rhythm. No murmur. ABDOMEN: Soft. Bowel sounds are present. No masses. No tenderness. EXTREMITIES: No pedal edema. No calf tenderness. NEUROLOGICAL: Patient is awake, alert and oriented x3. Cranial nerves 2 through 12 are grossly intact. Please refer to medication reconciliation sheet for a list of medications. The impression and plan of care has been dictated by Aleah Tejada, Nurse Practitioner as directed. Dr. Lopez MD I have performed a history and examination and MDM of this patient, discussed the same with the dictator, and agree with the dictator's assessment and plan as written ,documented as a scribe. Based on total visit time, I have performed more than 50% of the visit. Patient Condition at Discharge: Fair Plan - Discharge Summary Discharge Rx Participant: No New Discharge Prescriptions: New Acetaminophen Tab [Tylenol] 650 mg PO Q6HR PRN tab PRN Reason: Fever and/ or Mild Pain Oseltamivir [Tamiflu] 0 mg PO BID 3 Days #6 cap Continue Aspirin [[place] Aspirin EC] 81 mg PO DAILY Atorvastatin [Lipitor] 80 mg PO DAILY Losartan [Cozaar] 50 mg PO DAILY Donepezil HCl [Aricept] 10 mg PO DAILY Cyanocobalamin [Vitamin B-12] 500 mcg PO DAILY Cholecalciferol [Vitamin D3 (25 Mcg = 1000 Iu)] 25 mcg PO DAILY hydroCHLOROthiazide [Hydrodiuril] 25 mg PO DAILY Omeprazole 20 mg PO DAILY Potassium Chloride ER [K-Dur 10] 10 meq PO DAILY Discontinued atenoloL [Tenormin] 50 mg PO DAILY Discharge Medication List Aspirin [[place] Aspirin EC] 81 mg PO DAILY 06/25/21 [History] Atorvastatin [Lipitor] 80 mg PO DAILY 06/25/21 [History] Cholecalciferol [Vitamin D3 (25 Mcg = 1000 Iu)] 25 mcg PO DAILY 06/25/21 [History] Cyanocobalamin [Vitamin B-12] 500 mcg PO DAILY 06/25/21 [History] hydroCHLOROthiazide [Hydrodiuril] 25 mg PO DAILY 06/25/21 [History] Donepezil HCl [Aricept] 10 mg PO DAILY 03/30/24 [History] Losartan [Cozaar] 50 mg PO DAILY 03/30/24 [History] Omeprazole 20 mg PO DAILY 03/30/24 [History] Potassium Chloride ER [K-Dur 10] 10 meq PO DAILY 03/30/24 [History] Acetaminophen Tab [Tylenol] 650 mg PO Q6HR PRN tab 04/02/24 [Rx] Oseltamivir [Tamiflu] 0 mg PO BID 3 Days #6 cap 04/02/24 [Rx] Follow up Appointment(s)/Referral(s): Mitch Sahu MD [Primary Care Provider] - 1-2 days (Patient to make appointment on own time) Austin Redman DO [STAFF PHYSICIAN] - 1 Week (Patient to make appointment on own time) Patient Instructions/Handouts: Influenza (GEN) Discharge Disposition: HOME SELF-CARE
== END 2024-04-02 18:16 | disposition home or self-care (01) | DRG 193 ==
LOC: EC 15:04 → 3SCARD 17:26
PROVIDERS: ADMIT Family Medicine; ATTEND Family Medicine
PROC: B2111ZZ Fluoroscopy of Multiple Coronary Arteries using Low Osmolar Contrast (ICD-10-PCS; 2024-04-01)
PROC: 4A023N7 Measurement of Cardiac Sampling and Pressure, Left Heart, Percutaneous Approach (ICD-10-PCS; principal; 2024-04-01 10:01)
DX: J10.1 Influenza due to other identified influenza virus with other respiratory manifestations (principal); I21.A1 Myocardial infarction type 2; E87.1 Hypo-osmolality and hyponatremia; R41.81 Age-related cognitive decline; D69.6 Thrombocytopenia, unspecified; E78.5 Hyperlipidemia, unspecified; E83.42 Hypomagnesemia; I10 Essential (primary) hypertension; I44.0 Atrioventricular block, first degree; I25.10 Atherosclerotic heart disease of native coronary artery without angina pectoris; Z11.52 Encounter for screening for COVID-19; I08.3 Combined rheumatic disorders of mitral, aortic and tricuspid valves; F17.210 Nicotine dependence, cigarettes, uncomplicated; I48.91 Unspecified atrial fibrillation; J44.9 Chronic obstructive pulmonary disease, unspecified; K21.9 Gastro-esophageal reflux disease without esophagitis; Z79.82 Long term (current) use of aspirin; Z79.899 Other long term (current) drug therapy; Z86.19 Personal history of other infectious and parasitic diseases; Z90.49 Acquired absence of other specified parts of digestive tract
CPT/HCPCS: 36415; 71046; 80048; 80053; 80061; 83735; 84443; 84484; 85025; 85027; 85610; 85730; 87636; 93005; 93306; 93458; 96365; 96366; 99285